=== PATIENT | female | born 1985 | race Caucasian/White ===

== ENCOUNTER → 2016-05-16 | Outpatient (CLI) | payer BC ==
[~2016-05-16] MED LIST: ALPR0.25 PO; MULT-506 PO
== END | disposition home or self-care (01) ==
LOC: C.PAPS 11:52
PROVIDERS: ATTEND Obstetrics & Gynecology
DX: Z01.419 Encounter for gynecological examination (general) (routine) without abnormal findings (principal)

== ENCOUNTER → 2016-06-28 | Outpatient (CLI) | payer BC ==
[2016-06-28 10:17] LABS: THYROID STIMULATING HORMONE 0.823 uIu/ml (0.300-4.500)
== END | disposition home or self-care (01) ==
LOC: C.LAB1850 08:42
PROVIDERS: ATTEND Obstetrics & Gynecology
DX: R53.83 Other fatigue (principal); N91.1 Secondary amenorrhea

== ENCOUNTER → 2016-08-05 | Outpatient (CLI) | payer BC | END | disposition home or self-care (01) | LOC: C.LAB1850 11:43 | PROVIDERS: ATTEND Obstetrics & Gynecology | DX: N92.6 Irregular menstruation, unspecified (principal) ==

== ENCOUNTER → 2016-08-13 | Outpatient (CLI) | payer BC ==
--- NOTE | 2016-08-13 08:51 | DIAGNOSTIC IMAGING REPORT ---
LEFT RIBS UNILATERAL WITH PA CHEST CLINICAL HISTORY: Left chest wall pain. COMPARISON STUDY: No previous studies for comparison. FINDINGS: The erect chest reveals no pneumothorax. There is no focal pulmonary consolidation. There are no pleural effusions. No left-sided rib fractures are visualized. IMPRESSION: No evidence of pneumothorax. No left-sided rib fractures are visualized. Electronically signed by: Negrito Miles M.D. 08/13/2016 8:50 AM Dictated Date/Time: 08/13/2016 8:49 AM
== END | disposition home or self-care (01) ==
LOC: C.RAD1850 08:24
PROVIDERS: ATTEND Nurse Practitioner Family
DX: R07.89 Other chest pain (principal)

== ENCOUNTER → 2016-08-29 | Outpatient (CLI) | payer BC ==
--- NOTE | 2016-08-29 12:59 | DIAGNOSTIC IMAGING REPORT ---
HYSTEROSALPINGOGRAM CLINICAL HISTORY: Infertility testing. COMPARISON STUDY: Pelvic ultrasound dated 01/01/2016. FINDINGS: Fluoroscopic assistance was provided to the padder cushion in performing a hysterosalpingogram. The uterine cavity distends normally. Small gas bubbles are present within the endometrial canal. No filling defects are identified. There is normal filling of the fallopian tubes, with free spillage of contrast into pelvis bilaterally. Fluoroscopy time: 0.3 minutes. IMPRESSION: Unremarkable hysterosalpingogram. The fallopian tubes are widely patent bilaterally. Electronically signed by: Yobany Sal M.D. 08/29/2016 12:57 PM Dictated Date/Time: 08/29/2016 12:57 PM
--- NOTE | 2016-08-29 13:41 | OPERATIVE REPORT ---
DATE OF OPERATION: 08/29/2016 PREOPERATIVE DIAGNOSES: Primary infertility. POSTOPERATIVE DIAGNOSIS: Same. PROCEDURE PERFORMED: Hysterosalpingogram. SURGEON: Dr. Ordaz. FINDINGS: Injection of radiopaque dye showed normal fill and spill bilaterally of the fallopian tubes. PROCEDURE IN DETAIL: In the fluoroscopy suite, the patient was placed in dorsal lithotomy position. Cervix was visualized, cleansed with Betadine, HSG cannula inserted into the cervical os. Under direct fluoroscopic guidance hCG was performed with injection of radiopaque dye. Description as above. Instrumentation removed from the cervix. The patient tolerated the procedure well. I attest to the content of the Intraoperative Record and any orders documented therein. Any exceptio ns are noted below.
== END | disposition home or self-care (01) ==
LOC: C.RAD 11:13
PROVIDERS: ATTEND Obstetrics & Gynecology
DX: Z31.41 Encounter for fertility testing (principal)

== ENCOUNTER → 2016-09-21 | Outpatient (CLI) | payer BC ==
[2016-09-21 12:10] LABS: THYROID STIMULATING HORMONE 1.23 uIu/ml (0.300-4.500)
[2016-09-21 12:12] LABS: CALCULATED INSULIN SENSITIVITY 0.335; GLUCOSE LOG 1.9542; INSULIN FASTING 10.8 mU/L (3-25); PROLACTIN 7.56 ng/mL
== END | disposition home or self-care (01) ==
LOC: C.LAB 10:59
PROVIDERS: ATTEND Obstetrics & Gynecology
DX: Z31.41 Encounter for fertility testing (principal); L68.0 Hirsutism

== ENCOUNTER → 2017-01-07 | Outpatient (CLI) | payer BC | END | disposition home or self-care (01) | LOC: C.LABSPEC 17:55 | PROVIDERS: ATTEND Family Medicine | DX: J02.9 Acute pharyngitis, unspecified (principal) ==

== ENCOUNTER → 2017-03-03 | Outpatient (CLI) | payer BC ==
[2017-03-03 12:36] LABS: URINE APPEARANCE TURBID (CLEAR); URINE BILIRUBIN NEG (NEG); URINE COLOR YELLOW; URINE EPITHELIAL CELL AUTO >30 /lpf (0-5); URINE NITRITE NEG (NEG); URINE PH 5.5 (4.5-7.5); URINE SPECIFIC GRAVITY 1.025 (1.000-1.030); UROBILINOGEN NEG (NEG)
[2017-03-03 12:50] LABS: MANUAL MICROSCOPIC REQUIRED? NO; REVIEW REQ? NO
== END | disposition home or self-care (01) ==
LOC: C.LABPBG 09:55
PROVIDERS: ATTEND Obstetrics & Gynecology
DX: R39.9 Unspecified symptoms and signs involving the genitourinary system (principal)

== ENCOUNTER → 2017-06-13 | Outpatient (CLI) | payer BC ==
[2017-06-13 16:44] LABS: BASO % 0.6 %; BASO ABS # 0.03 K/uL (0-0.2); EOS % 3.2 %; EOS ABS # 0.17 K/uL (0-0.5); HEMATOCRIT 37.1 % (37-47); HEMOGLOBIN 12.5 g/dL (12.0-16.0); IG# 0.01 K/uL (0.00-0.02); LYMPH % 38.3 %; LYMPH ABS # 2.04 K/uL (1.2-3.4); MEAN CELL VOLUME 88.3 fL (80-100); MEAN CORPUSCULAR HEMOGLOBIN 29.8 pg (25-34); MEAN CORPUSCULAR HGB CONC 33.7 g/dl (32-36); MEAN PLATELET VOLUME 9.4 fL (7.4-10.4); MONO % 6.4 %; MONO ABS # 0.34 K/uL (0.11-0.59); NEUT % 51.3 %; NEUT ABS # 2.74 K/uL (1.4-6.5); PLATELET COUNT 232 K/uL (130-400); RED CELL DISTRIBUTION WIDTH CV 13.6 % (11.5-14.5); RED CELL DISTRIBUTION WIDTH SD 43.8 fL (36.4-46.3); WHITE BLOOD COUNT 5.33 K/uL (4.8-10.8)
[2017-06-13 16:56] LABS: ALBUMIN 3.8 gm/dl (3.4-5.0); ALT/SGPT 17 U/L (12-78); BLOOD UREA NITROGEN 14 mg/dl (7-18); CALCIUM 8.8 mg/dl (8.5-10.1); CARBON DIOXIDE 27 mmol/L (21-32); CREATININE 0.82 mg/dl (0.60-1.20); GLUCOSE 84 mg/dl (70-99); POTASSIUM 3.4 mmol/L (3.5-5.1); SODIUM 139 mmol/L (136-145)
[2017-06-13 17:07] LABS: ALKALINE PHOSPHATASE 53 U/L (45-117); AST/SGOT 11 U/L (15-37); TOTAL PROTEIN 7.1 gm/dl (6.4-8.2)
== END | disposition home or self-care (01) ==
LOC: C.LABBC 12:48
PROVIDERS: ATTEND Family Medicine
DX: R61 Generalized hyperhidrosis (principal)

== ENCOUNTER → 2017-08-20 | Outpatient (CLI) | payer BC ==
--- NOTE | 2017-08-20 13:52 | DIAGNOSTIC IMAGING REPORT ---
PELVIC COMPLETE NON OB HISTORY: 31 years-old Female R19.7,R10.30 acute lower pelvic pain COMPARISON: 01/01/2016 TECHNIQUE: Multiple real-time sonographic images of the pelvis were obtained transabdominally and transvaginally assessing grayscale appearance, color and spectral flow FINDINGS: TRANSABDOMINAL: Anteflexed uterus. Pelvic structures are not well seen. TRANSVAGINAL: Anteflexed uterus measures 8.1 x 4.3 x 4.4 cm and is unremarkable without myometrial mass lesion identified. Endometrium appears homogeneous, 0.7 cm. The right ovary measures 3.9 x 2.3 x 3.5 cm and demonstrates normal-appearing follicles with arterial inflow to the right ovary documented. The left ovary measures 3.7 x 2.3 x 2.7 cm and is also unremarkable with arterial inflow documented. No adnexal mass lesions. No significant free pelvic fluid. IMPRESSION: 1. Unremarkable sonographic appearance of the bilateral ovaries without evidence of adnexal mass lesion or ovarian torsion. 2. Normal appearance of the uterus and endometrium. The above report was generated using voice recognition software. It may contain grammatical, syntax or spelling errors. Electronically signed by: Haris Flor M.D. 08/20/2017 1:50 PM Dictated Date/Time: 08/20/2017 1:48 PM
--- NOTE | 2017-08-20 14:01 | DIAGNOSTIC IMAGING REPORT ---
ABDOMEN COMPLETE (US) HISTORY: Pain R19.7,R10.30. COMPARISON: None. FINDINGS: Pancreas: The pancreas demonstrates a normal echotexture. Liver: Unremarkable. Gallbladder: No gallbladder wall thickening. No gallstones. CBD: 3 mm Kidneys: No hydronephrosis. Spleen: Normal in size. Aorta: Normal in caliber. IVC: Patent. IMPRESSION: No significant abnormality identified within the within the abdomen. The above report was generated using voice recognition software. It may contain grammatical, syntax or spelling errors. Electronically signed by: Keith Rubio M.D. 08/20/2017 2:00 PM Dictated Date/Time: 08/20/2017 1:50 PM
[2017-08-20 17:05] LABS: BASO % 0.5 %; BASO ABS # 0.03 K/uL (0-0.2); EOS % 2.7 %; EOS ABS # 0.16 K/uL (0-0.5); HEMATOCRIT 41.2 % (37-47); HEMOGLOBIN 14.4 g/dL (12.0-16.0); IG# 0.01 K/uL (0.00-0.02); LYMPH % 35.5 %; LYMPH ABS # 2.09 K/uL (1.2-3.4); MEAN CELL VOLUME 87.5 fL (80-100); MEAN CORPUSCULAR HEMOGLOBIN 30.6 pg (25-34); MEAN PLATELET VOLUME 10.3 fL (7.4-10.4); MONO % 8.8 %; MONO ABS # 0.52 K/uL (0.11-0.59); NEUT % 52.3 %; NEUT ABS # 3.07 K/uL (1.4-6.5); PLATELET COUNT 223 K/uL (130-400); RED CELL DISTRIBUTION WIDTH CV 12.7 % (11.5-14.5); RED CELL DISTRIBUTION WIDTH SD 41.2 fL (36.4-46.3); WHITE BLOOD COUNT 5.88 K/uL (4.8-10.8)
[2017-08-20 17:14] LABS: ALBUMIN 4.4 gm/dl (3.4-5.0); ALT/SGPT 20 U/L (12-78); AST/SGOT 15 U/L (15-37); BLOOD UREA NITROGEN 10 mg/dl (7-18); CALCIUM 9.3 mg/dl (8.5-10.1); CARBON DIOXIDE 28 mmol/L (21-32); CREATININE 0.82 mg/dl (0.60-1.20); GLUCOSE 87 mg/dl (70-99); POTASSIUM 3.8 mmol/L (3.5-5.1); SODIUM 137 mmol/L (136-145)
[2017-08-20 17:17] LABS: ALKALINE PHOSPHATASE 67 U/L (45-117)
== END | disposition home or self-care (01) ==
LOC: C.ULTRBC 12:37
PROVIDERS: ATTEND Physician Assistant Medical
DX: R19.7 Diarrhea, unspecified (principal); R10.30 Lower abdominal pain, unspecified; Z13.21 Encounter for screening for nutritional disorder

== ENCOUNTER → 2017-08-21 | Outpatient (CLI) | payer BC | END | disposition home or self-care (01) | LOC: C.LABSPEC 08:53 | PROVIDERS: ATTEND Physician Assistant Medical | DX: R10.30 Lower abdominal pain, unspecified (principal); R19.7 Diarrhea, unspecified ==

== ENCOUNTER → 2017-11-05 | Outpatient (CLI) | payer BC ==
[~2017-11-05] MED LIST changes: +CHOL20007 PO; +ESCI10TA17 PO; -MULT-506 PO; +PRENTAB26 PO
== END | disposition home or self-care (01) ==
LOC: C.PAPS 15:03
PROVIDERS: ATTEND Obstetrics & Gynecology
DX: Z01.419 Encounter for gynecological examination (general) (routine) without abnormal findings (principal)

== ENCOUNTER → 2017-12-05 | Day surgery (SDC) | payer BC ==
[2017-09-15 12:03] VITALS: BMI 25.0
[2017-11-26 11:54] VITALS: BMI 25.0
[2017-12-02 11:24] VITALS: BMI 25.0
--- NOTE | 2017-12-02 11:51 | PAT Medication Instructions ---
Service Date Dec 02, 2017. Current Home Medication List Alprazolam (Xanax), 0.25 MG PO TID PRN for Anxiety Cholecalciferol (Vitamin D3), 1 TAB PO QAM Escitalopram (Lexapro), 10 MG PO QAM Multivit/Min/Iron/Fol Ac/Pren ( Vitamin), 1 TAB PO QAM Medication Instructions For Your Scheduled Surgery - Hold the following medications the morning of surgery: Cholecalciferol (Vitamin D3), 1 TAB PO QAM Multivit/Min/Iron/Fol Ac/Pren ( Vitamin), 1 TAB PO QAM - Take the following medications the morning of surgery with a sip of water: Alprazolam (Xanax), 0.25 MG PO TID PRN for Anxiety (if needed) Escitalopram (Lexapro), 10 MG PO QAM - Take the following medications as scheduled the night before surgery: Alprazolam (Xanax), 0.25 MG PO TID PRN for Anxiety (if needed) If you have any questions please call us at [phone] or [phone] or [phone]
[2017-12-02 12:40] LABS: BASO % 0.4 %; BASO ABS # 0.02 K/uL (0-0.2); EOS % 2.2 %; HEMATOCRIT 39.5 % (37-47); HEMOGLOBIN 13.2 g/dL (12.0-16.0); IG# 0.01 K/uL (0.00-0.02); LYMPH % 31.2 %; LYMPH ABS # 1.41 K/uL (1.2-3.4); MEAN CELL VOLUME 87.2 fL (80-100); MEAN CORPUSCULAR HEMOGLOBIN 29.1 pg (25-34); MEAN CORPUSCULAR HGB CONC 33.4 g/dl (32-36); MEAN PLATELET VOLUME 9.5 fL (7.4-10.4); MONO % 11.7 %; MONO ABS # 0.53 K/uL (0.11-0.59); NEUT % 54.3 %; NEUT ABS # 2.45 K/uL (1.4-6.5); PLATELET COUNT 205 K/uL (130-400); RED CELL DISTRIBUTION WIDTH CV 13.2 % (11.5-14.5); RED CELL DISTRIBUTION WIDTH SD 42.3 fL (36.4-46.3); WHITE BLOOD COUNT 4.52 K/uL (4.8-10.8)
[2017-12-02 12:46] LABS: CALCIUM 9.2 mg/dl (8.5-10.1); CREATININE 0.75 mg/dl (0.60-1.20); POTASSIUM 4.2 mmol/L (3.5-5.1)
[~2017-12-05] VITALS: Ht 160 cm; Wt 66.5 kg
[~2017-12-05] MED LIST changes: +ATROPINE SULFATE 0.1 MG/ML 5ML SYR IV PRN; +BUPIVACAINE 0.5 % 5 MG/1 ML PF 10ML VIAL ONE; +DEXAMETHASONE SOD INJ 4 MG/ML VIAL ONE; +FENTANYL CITRATE INJ 50 MCG/1 ML 2 ML VIAL IV PRN; +FENTANYL CITRATE INJ 50 MCG/1 ML 2 ML VIAL ONE; +GLYCOPYRROLATE INJ 0.2 MG/ML VIAL ONE; +IBUPROFEN 600 MG TAB PO PRN; +KETOROLAC TROMETHAMINE 30 MG/ML VIAL IV. PRN; +KETOROLAC TROMETHAMINE 30 MG/ML VIAL ONE; +LACTATED RINGER'S 1000ML 1,000 ML IV SCH; +LIDOCAINE HCL 2% 2 ML VIAL (20MG/ML) ONE; +MIDAZOLAM HCL 1 MG/ML 2ML VIAL ONE; +MTR600X PO; +NEOSTIGMINE METHYLSULFATE 5 MG/5 ML SYR ONE; +ONDANSETRON INJ 2 MG/ML 2 ML VIAL IV PRN; +ONDANSETRON INJ 2 MG/ML 2 ML VIAL ONE; +OXYC-57 PO; +OXYCODONE/ACETAMINOPHEN 5-325 TAB PO PRN; +PROMETHAZINE HCL INJ 25 MG in SODIUM CHLORIDE 0.9% 50ML 50 ML IV PRN; +PROPOFOL IV EMULSION 10 MG/ML 20 ML VIAL ONE; +SODIUM CHLORIDE 0.9% 1000ML 1,000 ML IV SCH
[2017-12-05 06:15] VITALS: BP 129/73; PULSE 80; TEMP 36.7; O2SAT 100; Ht 160 cm; Wt 66.5 kg
--- NOTE | 2017-12-05 07:06 | History & Physical Bridge Note ---
H&P Re-Evaluation Bridge Note: I have examined the patient, reviewed the History & Physical and in the interval since the performance of the History & Physical I have noted the following changes of clinical significance: No changes noted
--- NOTE | 2017-12-05 08:14 | [facility] Post Operative Brief Note ---
Immediate Operative Summary Operative Date Dec 05, 2017. Pre-Operative Diagnosis Dysmenorrhea Post-Operative Diagnosis Dysmenorrhea Pelvic pain, normal pelvis Procedure(s) Performed Diagnostic laparoscopy Surgeon Dr. Harleen Tanner MD Heel Seam Rubber Surgeon(s) None Estimated Blood Loss 1ml Findings Consistent with Post-Op Diagnosis Specimens None per surgeon Drains None Anesthesia Type General Complication(s) none Disposition Accompanied Pt To Recover: no Disposition: Recovery Room / PACU
--- NOTE | 2017-12-05 08:15 | Discharge Instructions ---
Discharge Instructions Date of Service Dec 05, 2017. Admission Reason for Admission: Dysmenorrhea ,Menorrhagia Discharge Discharge Diagnosis / Problem: pelvic pain Discharge Goals Goal(s): Routine recovery after surgery Activity Recommendations Activity Limitations: per Instructions/Follow-up section . Instructions / Follow-Up Instructions / Follow-Up ACTIVITY RECOMMENDATIONS: * Rest the first 2-3 days. You should be back to your normal activity levels by day 3. * No heavy lifting for 2 weeks. * No intercourse, tampons or douching for 1-2 weeks. * You may shower the next day. * Do not drive anytime that you are taking narcotic pain medicines. RETURN TO SCHOOL/WORK: * May return to school or work after 2-3 days. DIET: Nausea may occur in the immediate post-operative period. If so, take clear liquids such as tea, bouillon, apple juice until all nausea has subsided, then resume usual diet. MEDICATIONS: Resume previous medications unless instructed otherwise by your surgeon. Ibuprofen 200mg 2-3 tablets every 4-6 hours as needed -- OR -- Aleve 2 tablets every 8-12 hours as needed for post-operative discomfort Medications are over the counter. Tylenol may be used if above medications are contraindicated or not preferred. Medication should be taken with food or milk. Do not take on an empty stomach. SPECIAL CARE INSTRUCTIONS: * Check temperature twice daily for one week. report any elevation over 101 degrees. * You may experience some vagina spotting and/or bleeding. This is normal for 1 -2 weeks and should not be heavier than a normal period. If it is unusual in amount, call your physician. * Post-operative discomfort may consist of a sore throat, a "bloated" feeling and pain in the shoulders. these are normal symptoms, which usually only last for 2-3 days. * Remove band-aids tomorrow and shower. There is no need to replace band-aids unless there is drainage or discomfort. FOLLOW UP VISIT: Call your doctor's office for a post-operative 2 week visit if not already scheduled. Current Hospital Diet Patient's current hospital diet: Discharge Diet Recommended Diet: Regular Diet Procedures Procedures Performed: Diagnostic laparoscopy Pending Studies Studies pending at discharge: no Medical Emergencies . Who to Call and When: Medical Emergencies: If at any time you feel your situation is an emergency, please call 911 immediately. . Non-Emergent Contact Non-Emergency issues call your: [employer] Developer . . "Provider Documentation" section prepared by Keanu Tanner. .
--- NOTE | 2017-12-05 08:47 | OPERATIVE REPORT ---
DATE OF OPERATION: 12/05/2017 PREOPERATIVE DIAGNOSIS: Dysmenorrhea. POSTOPERATIVE DIAGNOSES: Dysmenorrhea, pelvic pain and normal pelvis. PROCEDURE: Diagnostic laparoscopy. SURGEON: Keanu Tanner MD UNBUNDLER: None. ESTIMATED BLOOD LOSS: 1 mL. FINDINGS: Consistent with postoperative diagnosis. SPECIMENS: None. DRAINS: None. ANESTHETIC: General. COMPLICATIONS: None. DISPOSITION: Recovery room. DESCRIPTION OF PROCEDURE: The patient was given a general anesthetic, prepped and draped in dorsal lithotomy position. Awad catheter inserted in her bladder and cervical acorn attached to her cervix with an Allis clamp. Gloves changed and a subumbilical vertical incision was made with scalpel. Using Amelia technique, we did a cut down through the subcutaneous fat through the fascia, splitting the rectus muscles and entering the peritoneal cavity. Blunt-tipped Amelia trocar then placed. Balloon inflated to stabilize the port. CO2 gas used to inflate the abdomen. FINDINGS: Upper abdomen normal, no sign of visceral organ injury. Deep Trendelenburg position obtained and a left lower quadrant port was placed under direct visualization. We were able to visualize the pelvis. It was completely normal. FINDINGS: Anterior bladder flap, normal. Left ovary, normal. Right ovary had a small resolving corpus luteal cyst. Cul-de-sac normal. Uterosacrals normal. Left pelvic sidewall, normal. Right pelvic sidewall, normal. Round ligaments, normal. Fallopian tubes, normal. The patient had a prior appendectomy, sutures could be seen. There was no endometriosis in this location. After very thorough investigation, the patient had no endometriosis and no adhesions. At this stage, we stopped the procedure. Ports removed under direct visualization. Gas allowed to escape. Incisions injected with 0.5% Marcaine. Fascia closed with an 0 Vicryl UR-6 needle in the umbilicus and all incisions injected with 0.5% Marcaine as mentioned and then 4-0 subcuticular Monocryl closures. Dermabond applied. Awad catheter removed. Urine was clear at the end of the procedure. Instruments removed from the cervix and vagina. Sponge and instrument counts correct. I attest to the content of the Intraoperative Record and any orders documented therein. Any exception s are noted below.
[2017-12-05 09:10] VITALS: BP 119/55; PULSE 78; TEMP 36.8; O2SAT 100
[2017-12-05 09:43] VITALS: BP 117/64; PULSE 72; O2SAT 100
[2017-12-05 10:10] VITALS: BP 138/73; PULSE 78; TEMP 37.2; O2SAT 98
--- NOTE | 2017-12-05 10:26 | Anesthesiology Progress Note ---
Anesthesia Post Op Note Date & Time Dec 05, 2017 at 10:25 Vital Signs Pain Intensity: 1 Vital Signs Past 12 Hours Date Time Temp Pulse Resp B/P (MAP) Pulse Ox O2 Delivery O2 Flow Rate FiO2 12/05/17 10:10 37.2 78 16 138/73 98 Room Air 12/05/17 09:43 72 16 117/64 100 Room Air 12/05/17 09:10 36.8 78 16 119/55 100 Room Air 12/05/17 09:00 36.5 75 13 127/65 98 Nasal Cannula 12/05/17 08:50 75 13 125/64 97 Nasal Cannula 12/05/17 08:40 82 10 136/73 100 Oxymask 10 12/05/17 08:30 81 14 137/73 100 Oxymask 10 12/05/17 08:24 36.4 101 26 141/77 100 Oxymask 10 12/05/17 06:15 36.7 80 16 129/73 (91) 100 Room Air Notes Mental Status: alert / awake / arousable, participated in evaluation Pt Amnestic to Procedure: Yes Nausea / Vomiting: adequately controlled Pain: adequately controlled Airway Patency, RR, SpO2: stable & adequate BP & HR: stable & adequate Hydration State: stable & adequate Anesthetic Complications: no major complications apparent
== END | disposition home or self-care (01) ==
LOC: C.ACU 05:52
PROVIDERS: ATTEND Obstetrics & Gynecology
DX: N94.6 Dysmenorrhea, unspecified (principal); N92.0 Excessive and frequent menstruation with regular cycle; Z88.5 Allergy status to narcotic agent; Z90.49 Acquired absence of other specified parts of digestive tract; Z87.440 Personal history of urinary (tract) infections; Z87.891 Personal history of nicotine dependence; Z91.040 Latex allergy status

== ENCOUNTER 2019-08-18 00:43 | Inpatient (IN) ==
[2019-08-18] MEDS ORDERED: OXYTOCIN 30 UNITS/500 ML BAG IV PRN ×3 (01:31→23:59)
[2019-08-18] MEDS ORDERED: fentaNYL 2MCG/ML ROPIV 1.25MG/ML 100 ML BAG EPI ONE ×2 (01:35→01:37)
[2019-08-18] MEDS ORDERED: ePHEDrine sulfate 50 MG/ML AMP ONE (01:36)
[2019-08-18] MEDS ORDERED: BUPIVACAINE 0.25% 30 ML VIAL ONE ×2 (01:36→16:27)
[2019-08-18] MEDS ORDERED: fentaNYL citrate 100 MCG/2 ML VIAL ONE ×2 (01:37→16:27)
[2019-08-18] MEDS: LACTATED RINGER'S 1,000 ML IV PRN ×4 (01:42→18:11)
[2019-08-18 02:00] LABS: Hematocrit (blood only) 31.1 % (37-47); Hemoglobin 10.1 g/dL (12.0-16.0); Mean Corpuscular Hemoglobin 28.4 pg (25-34); Mean Corpuscular Volume 87.4 fL (80-100); Platelet Count 204 K/uL (130-400); RDW Coefficient of Variation 13.5 % (11.5-14.5); RDW Standard Deviation 43.4 fL (36.4-46.3); Red Blood Count 3.56 M/uL (4.2-5.4); White Blood Count 9.72 K/uL (4.8-10.8)
[2019-08-18 02:06] LABS: Mean Corpuscular Hgb Conc 32.5 g/dL (32-36)
[2019-08-18 02:19] LABS: Alanine Aminotransferase 21 U/L (12-78); Albumin Level 2.7 gm/dl (3.4-5.0); Aspartate Aminotransferase 15 U/L (15-37); BUN Creatinine Ratio 17.2 (10-20); Bilirubin Direct < 0.1 mg/dl (0-0.2); Blood Urea Nitrogen 9 mg/dl (7-18); Calcium 8.6 mg/dl (8.5-10.1); Carbon Dioxide 21 mmol/L (21-32); Chloride 109 mmol/L (98-107); Creatinine Clr Calc Pharmacy 145.3 ml/min; Est GFR (African American) 144.9; Glucose 88 mg/dl (70-99); Potassium 3.7 mmol/L (3.5-5.1); Sodium 138 mmol/L (136-145)
[2019-08-18 02:22] LABS: Albumin Globulin Ratio 0.7 (0.9-2); Alkaline Phosphatase 124 U/L (45-117); Bilirubin,Total 0.2 mg/dl (0.2-1); Globulin 3.8 gm/dl (2.5-4.0); Total Protein 6.5 gm/dl (6.4-8.2)
[2019-08-18] MEDS ORDERED: ONDANSETRON INJ 2 MG/ML 2 ML VIAL IV PRN (02:40)
[2019-08-18] MEDS ORDERED: ePHEDrine sulfate 50 MG/ML AMP IV PRN (02:40)
[2019-08-18] MEDS ORDERED: DiphenhydrAMINE HCL 50 MG/ML VIAL IV PRN (02:40)
[2019-08-18] MEDS ORDERED: NALBUPHINE HCL INJ 10 MG/ML AMP IV PRN (02:40)
[2019-08-18] MEDS ORDERED: NALOXONE HCL 1 MG in SODIUM CHLORIDE 0.9% 1000ML 1,000 ML IV PRN (02:40)
[2019-08-18] MEDS ORDERED: NALOXONE HCL 0.4 MG/1 ML VIAL/CARP IV PRN (02:40)
--- NOTE | 2019-08-18 02:44 | Anesthesiology Consultation ---
Date of Service August 18, 2019 Assessment & Plan Chart Review Chart Review: Patient NOT seen in Pre Admission Testing and Acceptable Risk for Labor Epidural Consults Requested none ASA ASA2 Proposed Anesthesia Anesthesia Type: Labor Epidural and CSE Risk / Benefits Reviewed With: PT / POA / Parent / Guardian, Accepts Plan and Informed Consent Obtained History Height/Weight Height: 5 ft 3 in Weight: 76.657 kg Allergies Allergy/AdvReac Type Severity Reaction Status Date / Time adhesive tape Allergy Mild Rash Verified 08/17/19 19:31 latex Allergy Mild Rash Verified 08/17/19 19:31 acetaminophen [From Vicodin] Allergy GI upset Verified 08/17/19 19:31 hydrocodone [From Vicodin] Allergy GI upset Verified 08/17/19 19:31 nitrofurantoin AdvReac Unknown Gastrointestinal Verified 08/17/19 19:31 Upset Medications Home Medications Medication Instructions Recorded Confirmed Last Taken escitalopram oxalate [Lexapro] 10 mg PO DAILY 08/13/19 08/18/19 08/17/19 10:00 vit-iron fum-folic ac 1 tab PO DAILY 08/13/19 08/18/19 08/17/19 08:00 [ Vitamin] Active Medications Generic Name Dose Route Start Last Admin Trade Name Freq PRN Reason Stop Dose Admin Lactated Ringer's 1,000 mls @ 125 mls/hr 08/18/19 01:31 08/18/19 02:46 Lr IV 08/20/19 01:30 125 mls/hr .Q8H PRN Administration L&D Protocol Protocol NPO Date Last Intake of Fluids: 08/18/19 Time Last Intake of Fluids: 01:30 Date Last Intake of Solids: 08/17/19 Time Last Intake of Solids: 17:00 Past Medical History Medical History Acne (Chronic) Allergic rhinitis (Chronic) Anxiety (Chronic) Chronic constipation Chronic sinusitis (Chronic) Encounter for anatomic survey Fatigue (Resolved) Female dyspareunia (Inactive) Female infertility (Resolved) Fertility testing Hirsutism (Resolved) History of breast implant removal Menorrhagia (Resolved) Migraine headache (Chronic) Moderate cervical dysplasia (Resolved) Ovarian cyst (Resolved) Palpitations Premenstrual syndrome (Resolved) Renal lesion (Chronic) Secondary amenorrhea (Inactive) Sinus tachycardia (Resolved) TMJ syndrome (Resolved) Vitamin D deficiency (Resolved) Exercise / Class Metabolic Activity II 4-5 Yardwork/Stairs/Walk up hill Past Family History Family History Mother Adult celiac disease Endometriosis Non-Hodgkin lymphoma Anemia Sister Endometriosis Grandmother (Paternal) Diabetes Aunt Diabetes *Paternal Grandmother (Maternal) Anemia Hypertension Hypercholesteremia Denies family history of Ovarian cancer Prostate cancer Myocardial infarction Breast cancer Colorectal cancer Past Surgical History Surgical History History of appendectomy (10/12/12) History of appendectomy History of breast augmentation April 2010 History of laparoscopy History of oral surgery Past Anesthesia History No Hx of Anesthesia Complications and No Family Hx of Anesthesia Complications History of PONV No Hx of PONV and History of PONV Social History Smoking Status: Never smoker tobacco type: cigarettes Hx Alcohol Use: No Hx Substance Use: No substance use type: does not use Review of Systems no chest pain or sob Physical Exam Vital Signs Last Vital Signs Temp 36.7 C 08/18/19 00:59 Pulse 85 08/18/19 02:44 Resp 18 08/18/19 00:59 BP 145/71 H 08/18/19 02:40 Pulse Ox 98 08/18/19 02:44 ENMT Mouth: no TMJ abnormality Thyromental Distance: > or= 3.5 Finger Breadths Mallampati Class: II Neck normal visual inspection Respiratory normal respiratory effort Auscultation: lungs clear to auscultation bilaterally Cardiovascular Rate/Rhythm: regular rate and regular rhythm Musculoskeletal Spine: normal cervical ROM Neurologic moves all extremities Psychiatric Orientation: alert and oriented x 3 Testing Laboratory Results 08/18/19 01:45 08/18/19 01:45
--- NOTE | 2019-08-18 07:39 | History & Physical Report ---
Date of Service August 18, 2019 P1 with gestational hypertension being induced at 37+0. Had cervical lewis last night then started to contract and presented in labor. Epidural requested and received. GBS negative Assessment & Plan (1) Gestational hypertension: induction pitocin. History of Present Illness Primary Care Provider: Sandhya Hunter DO Allergies Allergy/AdvReac Type Severity Reaction Status Date / Time adhesive tape Allergy Mild Rash Verified 08/17/19 19:31 latex Allergy Mild Rash Verified 08/17/19 19:31 acetaminophen [From Vicodin] Allergy GI upset Verified 08/17/19 19:31 hydrocodone [From Vicodin] Allergy GI upset Verified 08/17/19 19:31 nitrofurantoin AdvReac Unknown Gastrointestinal Verified 08/17/19 19:31 Upset Home Medications Home Medications Medication Instructions Recorded Confirmed Type escitalopram oxalate [Lexapro] 10 mg PO DAILY 08/13/19 08/18/19 History vit-iron fum-folic ac 1 tab PO DAILY 08/13/19 08/18/19 History [ Vitamin] Patient History Medical History Acne (Chronic) Allergic rhinitis (Chronic) Anxiety (Chronic) Chronic constipation Chronic sinusitis (Chronic) Encounter for anatomic survey Fatigue (Resolved) Female dyspareunia (Inactive) Female infertility (Resolved) Fertility testing Hirsutism (Resolved) History of breast implant removal Menorrhagia (Resolved) Migraine headache (Chronic) Moderate cervical dysplasia (Resolved) Ovarian cyst (Resolved) Palpitations Premenstrual syndrome (Resolved) Renal lesion (Chronic) Secondary amenorrhea (Inactive) Sinus tachycardia (Resolved) TMJ syndrome (Resolved) Vitamin D deficiency (Resolved) Surgical History History of appendectomy (10/12/12) History of appendectomy History of breast augmentation April 2010 History of laparoscopy History of oral surgery Family History Mother Adult celiac disease Endometriosis Non-Hodgkin lymphoma Anemia Sister Endometriosis Grandmother (Paternal) Diabetes Aunt Diabetes *Paternal Grandmother (Maternal) Anemia Hypertension Hypercholesteremia Denies family history of Ovarian cancer Prostate cancer Myocardial infarction Breast cancer Colorectal cancer Social History Preferred Language: Cameroonian Communication Ability: Effective Visual Impairment: No Limitations Hearing Ability: Normal Rock Mason Required: No Beliefs That Will Affect Care: None marital status: marital status details: Jerry Florez (33) [phone] Current Living Situation: Spouse Current Living Situation Comment: 2 dogs current occupational status: employed current occupation: [employer] @ [employer] Feels Safe at Home: Yes Safety Concerns: Feels Safe At This Time Smoking Status: Never smoker Tobacco Type: cigarettes ; Second Hand Exposure: No ; Hx Alcohol Use: No Hx Substance Use: No Dental Care, Regularly: Yes Physical Activity Frequency: 3-4 Times per Week Seatbelt Use: always Physical Exam Constitutional: WD/WN, vitals as above Respiratory: normal respiratory effort, lungs clear to auscultation Genitourinary: Manual OB Exam: + cervical dilation 4 cm, + cervical effacement 50% and + station high OB Exam Monitor Tracing: + external FHT monitor used Results & Data Vital Signs (Past 12 Hours) Vital Signs Temp Pulse Resp BP Pulse Ox 08/18/19 07:36 77 125/56 L 08/18/19 07:34 88 98 08/18/19 07:29 78 99 08/18/19 07:24 81 96 08/18/19 07:21 75 125/59 L 08/18/19 07:19 74 98 08/18/19 07:14 74 99 08/18/19 07:09 82 100 08/18/19 07:05 93 H 131/62 08/18/19 07:04 83 99 08/18/19 06:59 95 H 98 08/18/19 06:54 81 97 08/18/19 06:51 81 130/59 L 08/18/19 06:49 91 H 96 08/18/19 06:44 82 96 08/18/19 06:39 91 H 99 08/18/19 06:36 85 133/63 08/18/19 06:35 79 137/64 08/18/19 06:34 80 99 08/18/19 06:29 92 H 96 08/18/19 06:24 80 97 08/18/19 06:21 86 124/60 08/18/19 06:19 84 96 08/18/19 06:14 82 97 08/18/19 06:09 85 99 05/06/20 06:05 83 134/65 05/06/20 06:04 88 98 05/06/20 05:59 82 99 05/06/20 05:55 16 05/0620 05:54 80 99 05/06/20 05:49 78 100 05/06/20 05:44 83 99 05/06/20 05:39 89 99 05/06/20 05:34 81 99 05/06/20 05:30 98.6 F 16 050620 05:29 78 99 05/06/20 05:25 18 05/06/20 05:24 88 99 05/06/20 05:19 88 96 05/06/20 05:14 85 96 05/06/20 05:09 81 96 050620 05:04 89 96 0506/20 04:59 84 95 05/06/20 04:55 81 94 05/06/20 04:54 80 95 05/06/20 04:49 79 95 0506/20 04:48 86 94 050620 04:44 86 96 05/06/20 04:39 81 97 05/06/20 04:35 18 050620 04:34 88 98 05/06/20 04:30 79 130/72 05/06/20 04:29 87 96 05/06/20 04:24 70 95 05/06/20 04:21 86 107/58 L 0620 04:19 86 95 05/06/20 04:15 82 94 05/06/20 04:14 85 96 050620 04:09 68 96 05/0620 04:06 83 108/58 L 91 050620 04:05 16 050620 04:04 92 H 98 05/06/20 03:59 73 96 05/06/20 03:54 81 98 05/06/20 03:52 76 121/68 93 05/06/20 03:49 76 97 05/06/20 03:44 79 97 05/06/20 03:39 87 97 05/06/20 03:36 81 117/64 05/06/20 03:34 80 98 05/06/20 03:29 72 97 05/06/20 03:24 91 H 97 050620 03:19 82 142/68 H 98 05/06/20 03:17 164 H 141/65 H 08/18/19 03:15 89 133/70 08/18/19 03:14 86 98 08/18/19 03:13 82 146/69 H 08/18/19 03:11 76 149/73 H 08/18/19 03:10 85 150/70 H 08/18/19 03:09 88 154/73 H 98 08/18/19 03:08 88 141/69 H 08/18/19 03:07 83 141/73 H 08/18/19 03:05 90 18 134/73 08/18/19 03:04 92 H 98 08/18/19 03:03 93 H 140/88 08/18/19 03:00 82 140/84 08/18/19 02:59 84 99 08/18/19 02:54 94 H 147/89 H 99 08/18/19 02:51 105 H 91 08/18/19 02:49 90 99 08/18/19 02:44 85 98 08/18/19 02:40 85 145/71 H 08/18/19 02:39 93 H 100 08/18/19 02:23 93 H 99 08/18/19 02:18 82 99 08/18/19 02:13 77 100 08/18/19 02:08 86 97 08/18/19 02:03 82 98 08/18/19 01:58 86 96 08/18/19 01:53 77 99 08/18/19 00:59 98.1 F 75 18 134/66 08/18/19 00:55 75 134/66 Coding Level of Care Code None Diagnoses Gestational hypertension O13.9
[2019-08-18] MEDS: fentaNYL 2MCG/ML ROPIV 1.25MG/ML 100 ML BAG EPI PRN ×3 (11:45→22:36)
[2019-08-18] MEDS ORDERED: Nursing to Pharmacy Communication ONE ×2 (13:14→20:04)
--- NOTE | 2019-08-18 15:34 | Labor Progress Brief Note ---
Date of Service August 18, 2019 Subjective Reason For Note: Routine Evaluation Assessment & Plan (1) Gestational hypertension: (2) Supervision of normal intrauterine in primigravida: Physical Exam Genitourinary: Manual OB Exam: + cervical dilation 4 cm, + cervical effacement 50%, + station high and + amniotic fluid (AROM) bloody OB Exam Monitor Tracing: + external FHT monitor used, + external uterine monitor used, + category I and + normal FHT variability; no early decelerations present, no late decelerations present and no variable decelerations Results & Data Vital Signs (Past 12 Hours) Vital Signs Temp Pulse Resp BP Pulse Ox 08/18/19 15:29 80 96 08/18/19 15:24 92 H 95 08/18/19 15:22 87 93 08/18/19 15:20 94 H 116/59 L 08/18/19 15:19 93 H 95 08/18/19 15:15 92 H 94 08/18/19 15:14 87 95 08/18/19 15:09 82 96 08/18/19 15:05 85 18 122/63 08/18/19 15:04 86 96 08/18/19 14:59 96 H 96 08/18/19 14:54 83 98 08/18/19 14:50 36.8 C 84 20 131/62 08/18/19 14:49 89 98 08/18/19 14:44 77 98 08/18/19 14:39 82 100 08/18/19 14:35 76 20 137/74 08/18/19 14:34 78 100 08/18/19 14:29 86 99 08/18/19 14:24 84 99 08/18/19 14:20 73 140/67 08/18/19 14:19 77 100 08/18/19 14:14 77 100 08/18/19 14:10 36.7 C 20 08/18/19 14:09 78 99 08/18/19 14:05 76 132/63 08/18/19 14:04 81 99 08/18/19 13:59 82 100 08/18/19 13:54 77 100 08/18/19 13:51 75 124/58 L 08/18/19 13:49 76 97 08/18/19 13:44 78 97 08/18/19 13:39 72 99 08/18/19 13:35 75 125/58 L 08/18/19 13:34 76 100 05 13:29 76 100 05 13:24 74 100 05 13:20 73 128/62 05 13:19 74 99 08/18/19 13:14 72 99 08/18/19 13:09 81 98 08/18/19 13:05 75 119/55 L 08/18/19 13:04 81 99 08/18/19 12:59 92 H 98 08/18/19 12:54 86 99 08/18/19 12:50 81 129/65 05 12:49 79 96 08/18/19 12:44 80 96 08/18/19 12:39 80 95 08/18/19 12:36 76 127/65 08/18/19 12:34 81 95 08/18/19 12:29 80 95 08/18/19 12:24 83 97 08/18/19 12:20 78 127/64 08/18/19 12:19 81 95 08/18/19 12:14 79 97 08/18/19 12:09 90 98 08/18/19 12:07 77 128/66 08/18/19 12:04 82 97 08/18/19 12:00 18 08/18/19 11:59 77 97 08/18/19 11:54 80 98 08/18/19 11:52 84 132/71 08/18/19 11:49 78 97 08/18/19 11:44 73 97 08/18/19 11:39 78 96 08/18/19 11:36 75 124/63 05 11:34 78 97 0506 11:30 18 08/18/19 11:29 77 97 05 11:24 71 97 0506 11:21 75 127/69 0506 11:19 84 98 08/18/19 11:14 72 97 08/18/19 11:09 80 98 08/18/19 11:05 36.7 C 80 20 126/67 0506 11:04 84 99 050620 10:59 81 100 0506 10:54 79 100 05 10:51 84 124/58 L 05/06/20 10:50 81 128/60 05/06/20 10:49 80 99 05/06/20 10:44 77 99 05/06/20 10:39 84 95 05/06/20 10:35 81 127/58 L 05/06/20 10:34 82 95 05/06/20 10:29 86 95 05/06/20 10:28 89 94 05/06/20 10:24 82 95 05/06/20 10:20 80 119/55 L 05/0620 10:19 85 95 05/06/20 10:14 84 96 05/06/20 10:09 78 97 05/06/20 10:06 77 18 116/57 L 050620 10:04 76 98 05/0620 09:59 78 98 05/0620 09:54 83 99 05/06/20 09:51 81 128/63 05/06/20 09:49 75 97 05/06/20 09:44 89 96 05/0620 09:40 86 94 050620 09:39 86 95 050620 09:37 88 20 121/59 L 050620 09:34 88 96 05/06/20 09:29 92 H 97 05/06/20 09:24 93 H 97 05/0620 09:21 76 131/68 05/06/20 09:20 20 05/0620 09:19 98 H 98 05/06/20 09:14 85 96 05/06/20 09:09 96 H 96 05/0620 09:05 82 18 127/62 05/0620 09:04 81 96 05/0620 08:59 83 96 05/06/20 08:54 82 98 05/06/20 08:52 82 129/67 05/06/20 08:49 81 98 05/06/20 08:44 79 97 05/06/20 08:39 89 97 05/06/20 08:36 85 122/63 05/06/20 08:34 76 98 05/06/20 08:29 81 99 05/0620 08:24 93 H 100 05/0620 08:21 76 122/55 L 050620 08:19 85 98 05/0620 08:14 80 99 05/0620 08:09 80 99 05/06/20 08:06 77 18 117/57 L 08/18/19 08:04 79 97 08/18/19 07:59 83 97 08/18/19 07:54 88 98 08/18/19 07:50 82 116/56 L 08/18/19 07:49 84 96 08/18/19 07:44 79 96 08/18/19 07:39 81 96 08/18/19 07:36 77 125/56 L 08/18/19 07:34 88 98 08/18/19 07:29 78 99 08/18/19 07:24 81 96 08/18/19 07:21 75 18 125/59 L 08/18/19 07:19 74 98 08/18/19 07:14 74 99 08/18/19 07:09 82 100 08/18/19 07:05 36.7 C 93 H 20 131/62 08/18/19 07:04 83 99 08/18/19 06:59 95 H 98 08/18/19 06:54 81 97 08/18/19 06:51 81 130/59 L 08/18/19 06:49 91 H 96 08/18/19 06:44 82 96 08/18/19 06:39 91 H 99 08/18/19 06:36 85 133/63 06 06:35 79 137/64 08/18/19 06:34 80 99 08/18/19 06:29 92 H 96 08/18/19 06:24 80 97 08/18/19 06:21 86 124/60 0506 06:19 84 96 08/18/19 06:14 82 97 06 06:09 85 99 06 06:05 83 134/65 05 06:04 88 98 06 05:59 82 99 0506 05:55 16 05 05:54 80 99 08/18/19 05:49 78 100 08/18/19 05:44 83 99 06 05:39 89 99 08/18/19 05:34 81 99 0506 05:30 37.0 C 16 08/18/19 05:29 78 99 0506 05:25 18 08/18/19 05:24 88 99 08/18/19 05:19 88 96 08/18/19 05:14 85 96 08/18/19 05:09 81 96 08/18/19 05:04 89 96 08/18/19 04:59 84 95 08/18/19 04:55 81 94 08/18/19 04:54 80 95 08/18/19 04:49 79 95 08/18/19 04:48 86 94 08/18/19 04:44 86 96 08/18/19 04:39 81 97 08/18/19 04:35 18 08/18/19 04:34 88 98 08/18/19 04:30 79 130/72 08/18/19 04:29 87 96 08/18/19 04:24 70 95 08/18/19 04:21 86 107/58 L 08/18/19 04:19 86 95 08/18/19 04:15 82 94 08/18/19 04:14 85 96 08/18/19 04:09 68 96 08/18/19 04:06 83 108/58 L 91 08/18/19 04:05 16 08/18/19 04:04 92 H 98 08/18/19 03:59 73 96 08/18/19 03:54 81 98 08/18/19 03:52 76 121/68 93 08/18/19 03:49 76 97 08/18/19 03:44 79 97 08/18/19 03:39 87 97 08/18/19 03:36 81 117/64 08/18/19 03:34 80 98 Coding Level of Care Code None Diagnoses Gestational hypertension O13.9 Supervision of normal intrauterine in primigravida Z34.00
--- NOTE | 2019-08-18 17:20 | Labor Progress Brief Note ---
Date of Service August 18, 2019 Assessment & Plan (1) Gestational hypertension: Progressing, Cat 1 (2) Supervision of normal intrauterine in primigravida: Physical Exam Genitourinary: Manual OB Exam: + cervical dilation 5 cm, + cervical effacement 80%, + station -2 and + amniotic fluid (AROM) bloody OB Exam Monitor Tracing: + external FHT monitor used, + external uterine monitor used, + category I and + normal FHT variability; no early decelerations present, no late decelerations present and no variable decelerations Results & Data Vital Signs (Past 12 Hours) Vital Signs Temp Pulse Resp BP Pulse Ox 08/18/19 17:14 103 H 99 08/18/19 17:09 77 97 08/18/19 17:05 82 136/63 08/18/19 17:04 79 97 08/18/19 16:59 75 96 08/18/19 16:54 75 96 08/18/19 16:50 76 129/58 L 08/18/19 16:49 77 97 08/18/19 16:44 36.9 C 76 18 98 08/18/19 16:39 75 98 08/18/19 16:35 81 18 127/57 L 08/18/19 16:34 81 100 08/18/19 16:33 75 133/61 08/18/19 16:29 78 99 08/18/19 16:24 76 97 08/18/19 16:20 75 116/55 L 08/18/19 16:19 75 98 08/18/19 16:14 80 96 08/18/19 16:09 75 98 08/18/19 16:05 79 131/68 08/18/19 16:04 80 99 08/18/19 15:59 89 97 08/18/19 15:54 85 96 08/18/19 15:51 78 130/63 08/18/19 15:49 88 98 08/18/19 15:44 91 H 98 08/18/19 15:39 83 96 08/18/19 15:35 86 20 122/58 L 08/18/19 15:34 82 96 08/18/19 15:33 89 94 08/18/19 15:29 80 96 08/18/19 15:24 92 H 95 08/18/19 15:22 87 93 08/18/19 15:20 94 H 116/59 L 08/18/19 15:19 93 H 95 08/18/19 15:15 92 H 94 08/18/19 15:14 87 95 08/18/19 15:09 82 96 08/18/19 15:05 85 18 122/63 08/18/19 15:04 86 96 08/18/19 14:59 96 H 96 08/18/19 14:54 83 98 08/18/19 14:50 36.8 C 84 20 131/62 08/18/19 14:49 89 98 08/18/19 14:44 77 98 08/18/19 14:39 82 100 08/18/19 14:35 76 20 137/74 05 14:34 78 100 08/18/19 14:29 86 99 08/18/19 14:24 84 99 08/18/19 14:20 73 140/67 08/18/19 14:19 77 100 08/18/19 14:14 77 100 08/18/19 14:10 36.7 C 20 08/18/19 14:09 78 99 08/18/19 14:05 76 132/63 08/18/19 14:04 81 99 08/18/19 13:59 82 100 08/18/19 13:54 77 100 08/18/19 13:51 75 124/58 L 08/18/19 13:49 76 97 08/18/19 13:44 78 97 08/18/19 13:39 72 99 08/18/19 13:35 75 125/58 L 08/18/19 13:34 76 100 08/18/19 13:29 76 100 08/18/19 13:24 74 100 08/18/19 13:20 73 128/62 08/18/19 13:19 74 99 08/18/19 13:14 72 99 08/18/19 13:09 81 98 08/18/19 13:05 75 119/55 L 08/18/19 13:04 81 99 08/18/19 12:59 92 H 98 08/18/19 12:54 86 99 08/18/19 12:50 81 129/65 08/18/19 12:49 79 96 08/18/19 12:44 80 96 08/18/19 12:39 80 95 05/06/20 12:36 76 127/65 05/0620 12:34 81 95 05/06/20 12:29 80 95 05/0620 12:24 83 97 05/0620 12:20 78 127/64 05/0620 12:19 81 95 05/0620 12:14 79 97 050620 12:09 90 98 050620 12:07 77 128/66 050620 12:04 82 97 0506 12:00 18 05 11:59 77 97 050620 11:54 80 98 05 11:52 84 132/71 0506 11:49 78 97 0506 11:44 73 97 0506 11:39 78 96 0506 11:36 75 124/63 050620 11:34 78 97 05 11:30 18 08/18/19 11:29 77 97 050620 11:24 71 97 05 11:21 75 127/69 05/0620 11:19 84 98 0506 11:14 72 97 05/0620 11:09 80 98 050620 11:05 36.7 C 80 20 126/67 0506 11:04 84 99 050620 10:59 81 100 05/0620 10:54 79 100 050620 10:51 84 124/58 L 050620 10:50 81 128/60 05/0620 10:49 80 99 05/0620 10:44 77 99 05/0620 10:39 84 95 05/0620 10:35 81 127/58 L 050620 10:34 82 95 05/0620 10:29 86 95 05/0620 10:28 89 94 05/0620 10:24 82 95 05/06/20 10:20 80 119/55 L 050620 10:19 85 95 050620 10:14 84 96 05/0620 10:09 78 97 05/0620 10:06 77 18 116/57 L 0506 10:04 76 98 0506 09:59 78 98 0506/20 09:54 83 99 05/0620 09:51 81 128/63 05/06/20 09:49 75 97 05/0620 09:44 89 96 05/0620 09:40 86 94 050620 09:39 86 95 050620 09:37 88 20 121/59 L 0620 09:34 88 96 050620 09:29 92 H 97 0506 09:24 93 H 97 05 09:21 76 131/68 05/0620 09:20 20 05 09:19 98 H 98 0506 09:14 85 96 0506 09:09 96 H 96 08/18/19 09:05 82 18 127/62 0506 09:04 81 96 050620 08:59 83 96 0520 08:54 82 98 05/0620 08:52 82 129/67 050620 08:49 81 98 050620 08:44 79 97 050620 08:39 89 97 050620 08:36 85 122/63 05/06/20 08:34 76 98 05/06/20 08:29 81 99 05/0620 08:24 93 H 100 050620 08:21 76 122/55 L 0620 08:19 85 98 050620 08:14 80 99 050620 08:09 80 99 050620 08:06 77 18 117/57 L 0620 08:04 79 97 050620 07:59 83 97 050620 07:54 88 98 050620 07:50 82 116/56 L 0506/20 07:49 84 96 05/06/20 07:44 79 96 05/06/20 07:39 81 96 05/0620 07:36 77 125/56 L 050620 07:34 88 98 050620 07:29 78 99 05/06/20 07:24 81 96 05/06/20 07:21 75 18 125/59 L 0506/20 07:19 74 98 05/0620 07:14 74 99 0506/20 07:09 82 100 05/06/20 07:05 36.7 C 93 H 20 131/62 08/18/19 07:04 83 99 08/18/19 06:59 95 H 98 08/18/19 06:54 81 97 08/18/19 06:51 81 130/59 L 08/18/19 06:49 91 H 96 08/18/19 06:44 82 96 08/18/19 06:39 91 H 99 08/18/19 06:36 85 133/63 08/18/19 06:35 79 137/64 08/18/19 06:34 80 99 08/18/19 06:29 92 H 96 08/18/19 06:24 80 97 08/18/19 06:21 86 124/60 08/18/19 06:19 84 96 08/18/19 06:14 82 97 08/18/19 06:09 85 99 08/18/19 06:05 83 134/65 08/18/19 06:04 88 98 08/18/19 05:59 82 99 08/18/19 05:55 16 08/18/19 05:54 80 99 08/18/19 05:49 78 100 08/18/19 05:44 83 99 08/18/19 05:39 89 99 08/18/19 05:34 81 99 08/18/19 05:30 37.0 C 16 08/18/19 05:29 78 99 08/18/19 05:25 18 08/18/19 05:24 88 99 08/18/19 05:19 88 96 Coding Level of Care Code None Diagnoses Gestational hypertension O13.9 Supervision of normal intrauterine in primigravida Z34.00
[2019-08-18] MEDS ORDERED: ACETAMINOPHEN 325 MG TAB PO PRN (23:59)
[2019-08-18] MEDS ORDERED: DIPHTHERIA/TETANUS/PERTUSSIS 0.5 ML SYR/VIAL IM ONE (23:59)
[2019-08-18] MEDS ORDERED: HYDROCORTISONE ACETATE 25 MG SUPP PR PRN (23:59)
[2019-08-18] MEDS ORDERED: bisacodyL 10 MG SUPP PR PRN (23:59)
[2019-08-18] MEDS ORDERED: BENZOCAINE 20% AER SPR 82.5 GM CAN EXT PRN (23:59)
[2019-08-18] MEDS ORDERED: SUPERCREAM 0.870% 15 GM JAR EXT PRN (23:59)
--- NOTE | 2019-08-19 00:07 | Anesthesia Procedure Note ---
Date of Service August 19, 2019 Anesthesia Post Epidural Note Vital Signs Vital Signs: Temp Pulse Resp BP Pulse Ox 36.8 C 82 18 128/71 93 08/18/19 23:50 08/19/19 00:05 08/19/19 00:05 08/19/19 00:05 08/18/19 23:48 Pain Intensity Lower Back: Pain Intensity: 7 Notes Mental Status: alert / awake / arousable and participated in evaluation Nausea / Vomiting: adequately controlled Pain: adequately controlled Airway Patency, RR, SpO2: stable & adequate BP & HR: stable & adequate Hydration State: stable & adequate Neuraxial Anesthesia: was administered and sensory block is resolving Anesthetic Complications: no major complications apparent and Pt Satisfied with anesthetic care Epidural: Removed without complications and With tip intact
--- NOTE | 2019-08-19 01:55 | Delivery Summary ---
DATE OF OPERATION: 08/19/2019 PROCEDURE: Normal spontaneous vaginal delivery with second-degree perineal laceration repair. SURGEON: Chucho Maurice MD PREOPERATIVE DIAGNOSES: 1. Single intrauterine at 37 weeks 0 days gestational age. 2. Gestational hypertension. POSTOPERATIVE DIAGNOSES: 1. Single intrauterine at 37 weeks 0 days gestational age. 2. Gestational hypertension. 3. Status post delivery. ESTIMATED BLOOD LOSS: 300 mL. DRAINS: None. FLUIDS: Continuous lactated ringer. URINE OUTPUT: Not measured. COMPLICATIONS: None. FINDINGS: Viable female infant with weight and Apgars pending. INDICATIONS: The patient is a 33-year-old G1, P0 admitted at 37 weeks 0 days gestational age for induction of labor for gestational hypertension. At initial presentation, the patient was noted to have a Awad bulb in place, which was placed the night prior and was angel painfully. She was started on oxytocin per regular protocol and Awad bulb was removed. The patient received an epidural for anesthesia. Oxytocin was continued until approximately early afternoon at which time the patient underwent artificial rupture of membranes for clear fluid. She continued to progress in labor to complete-complete +2 station, at which time she felt the urge to push. DESCRIPTION OF PROCEDURE: The patient progressed to 10 cm dilated, 100% effaced, +2 station, pushed over intact perineum with epidural anesthesia and delivered a viable female , weight and Apgars as noted above. Head of the delivered in THEO position, restituted to right transverse. A loose nuchal was noted which was easily reduced. Body and shoulders quickly followed. was delivered to maternal abdomen which showed signs of activity and a 1-minute delayed cord clamping was initiated. After 1-minute the cord was double clamped and cut. was then taken over to the waiting nursery staff for further evaluation for further evaluation. Cord segment and cord blood was obtained. Attention was then turned to deliver the placenta, which was delivered intact with 3-vessel cord with gentle cord traction. On inspection of the perineum, vagina, and cervix, there was noted to be a second degree perineal laceration which was repaired with 3-[address] with a traditional crown stitch. Needle, sponge and instrument counts were correct at the completion of the case. Both mother and stable in the immediate post-delivery period. I attest to the content of the Intraoperative Record and any orders documented therein. Any exception s are noted below.
[2019-08-19] MEDS: IBUPROFEN 600 MG TAB PO PRN ×3 (04:42→18:12)
[2019-08-19 06:43] LABS: Hematocrit (blood only) 27.4 % (37-47); Hemoglobin 8.8 g/dL (12.0-16.0)
--- NOTE | 2019-08-19 07:38 | Obstetrical Progress Note ---
Date of Service August 19, 2019 Assessment & Plan (1) care and examination: Day 1 s/p . Doing well. Continue routine care Subjective Ambulation: ambulating normally Voiding: no voiding problems Passing Gas:: Yes Diet Tolerance:: regular diet Lochia:: Moderate Feeding Type:: breast feeding Physical Exam Constitutional WD/WN, vitals as above Respiratory normal respiratory effort; no respiratory distress and no labored breathing Gastrointestinal (Abdomen) Inspection/Auscultation: abdomen normal to inspection; abdomen not distended Percussion/Palpation: abdomen soft; abdomen nontender, no guarding and abdomen not rigid Genitourinary OB Exam Abdomen: + fundal height Fundus: + firm and + relation to umbilicus (Below); not tender and not boggy Results & Data Vital Signs (Past 12 Hours) Vital Signs Temp Pulse Resp BP Pulse Ox 08/19/19 04:30 37.2 C 18 08/19/19 02:05 83 120/55 L 08/19/19 01:50 86 18 124/56 L 08/19/19 01:35 82 118/57 L 08/19/19 01:20 82 18 115/57 L 08/19/19 01:05 77 132/68 08/19/19 00:50 80 18 126/66 08/19/19 00:35 81 18 125/56 L 08/19/19 00:20 86 18 119/59 L 08/19/19 00:05 82 18 128/71 08/18/19 23:50 36.8 C 82 18 130/65 08/18/19 23:48 92 H 93 08/18/19 23:45 82 98 08/18/19 23:40 84 99 08/18/19 23:35 92 H 125/85 98 08/18/19 23:30 100 H 97 08/18/19 23:27 90 89 L 08/18/19 23:25 100 H 98 08/18/19 23:20 104 H 97 08/18/19 23:15 99 H 98 08/18/19 23:13 107 H 86 L 08/18/19 23:10 87 99 08/18/19 23:07 91 H 86 L 08/18/19 23:05 104 H 137/55 L 97 08/18/19 23:00 88 84 L 08/18/19 22:55 88 99 08/18/19 22:50 85 139/72 98 08/18/19 22:45 37.1 C 76 96 08/18/19 22:40 73 97 08/18/19 22:35 88 128/70 100 08/18/19 22:30 77 100 08/18/19 22:25 81 97 08/18/19 22:21 74 125/57 L 08/18/19 22:20 74 100 08/18/19 22:15 81 98 08/18/19 22:10 78 98 08/18/19 22:05 78 128/79 100 08/18/19 22:00 85 99 08/18/19 21:55 78 98 08/18/19 21:51 75 125/57 L 08/18/19 21:50 77 97 08/18/19 21:45 75 98 08/18/19 21:40 77 98 08/18/19 21:35 81 130/58 L 100 08/18/19 21:30 93 H 97 08/18/19 21:25 72 97 08/18/19 21:20 77 123/62 97 08/18/19 21:15 76 99 08/18/19 21:10 82 99 08/18/19 21:05 81 114/58 L 100 08/18/19 21:00 36.6 C 76 99 08/18/19 20:54 76 98 08/18/19 20:51 78 121/62 08/18/19 20:49 78 98 08/18/19 20:44 82 100 08/18/19 20:39 83 100 08/18/19 20:36 82 114/56 L 08/18/19 20:34 76 100 08/18/19 20:29 82 98 08/18/19 20:24 105 H 61 L 08/18/19 20:21 77 129/62 08/18/19 20:19 76 99 08/18/19 20:14 76 98 08/18/19 20:09 79 99 08/18/19 20:06 75 119/56 L 08/18/19 20:04 75 97 08/18/19 19:59 82 97 08/18/19 19:54 88 100 08/18/19 19:51 82 128/59 L 08/18/19 19:49 78 100 08/18/19 19:44 79 97 08/18/19 19:39 89 100
[2019-08-19] MEDS: DOCUSATE SODIUM 100 MG CAP PO SCH ×2 (08:35→21:22)
[2019-08-19] MEDS: PRENATAL VITAMIN 1 TAB PO SCH (08:35)
[2019-08-19] MEDS: FERROUS SULFATE 325 MG TAB PO SCH (08:35)
[2019-08-19] MEDS: ESCITALOPRAM OXALATE 10 MG TAB PO SCH (08:36)
[2019-08-19] MEDS ORDERED: bisacodyL 5 MG TABEC PO SCH (20:00)
--- NOTE | 2019-08-20 06:52 | Obstetrical Progress Note ---
Date of Service August 20, 2019 Assessment & Plan (1) Supervision of normal intrauterine in primigravida: - doing well - BP stable - ready for d/c - instructions given - f/u in 6 weeks Subjective Ambulation: ambulating normally Voiding: no voiding problems Feeding Type:: breast feeding Physical Exam Constitutional WD/WN, vitals as above Gastrointestinal (Abdomen) Fundus firm below umbilicus Musculoskeletal No deep calf tenderness Results & Data Vital Signs (Past 12 Hours) Vital Signs Temp Pulse Resp BP 08/20/19 00:15 98.1 F 76 16 124/66 08/19/19 20:25 98.2 F 91 H 18 131/70
[2019-08-20] MEDS: IBUPROFEN 600 MG TAB PO PRN (08:25)
[2019-08-20] MEDS: DOCUSATE SODIUM 100 MG CAP PO SCH (08:26)
[2019-08-20] MEDS: FERROUS SULFATE 325 MG TAB PO SCH (08:27)
[2019-08-20] MEDS: PRENATAL VITAMIN 1 TAB PO SCH (08:27)
[2019-08-20] MEDS: ESCITALOPRAM OXALATE 10 MG TAB PO SCH (08:27)
== END 2019-08-20 11:35 | disposition home or self-care (01) | DRG 807 ==
LOC: 4S1 00:43 → 4S2 08-19 04:51

== ENCOUNTER 2022-10-01 10:33 | Inpatient (IN) ==
--- NOTE | 2022-10-01 11:07 | Emergency Department Note ---
Impression & Plan Syncope, Generalized weakness, Positive Lyme disease serology ED Provider Note NAME: CORINE FLOREZ AGE: 37 SEX: F : 1985 ARRIVES VIA: Ambulance INFORMANT: Patient, ED PROVIDER(S): Yosvany Chakraborty MD CHIEF COMPLAINT: Syncope, generalized weakness MEDICAL DECISION MAKING: Patient does present due to concern for syncope and generalized weakness. Next IV was established blood was obtained. Patient did have some basilar skull pain and does not know whether or not she fell or struck her head. Patient does have a nonfocal neurologic exam. IV was established blood work was obtained and the patient did have an EKG completed along with COVID combo test CT of the head the patient was treated symptomatically with IV fluids IV Zofran and IV Toradol. Patient's EKG is grossly unremarkable. The patient's blood work also grossly unremarkable with a normal white count H&H and platelet count. Mild hyponatremia noted. BSG 108 and 112 but nonfasting not DKA. TSH not elevated urinalysis negative the patient's COVID flu negative. CT head negative. Positive reassessment the patient was still not feeling well so the patient was ordered Pepcid and GI cocktail. Patient was subsequently evaluated thereafter was still not feeling well. Chest x-ray obtained which is unremarkable. Clinically the patient appears unwell and that her blood work and imaging is reassuring. Given the patient's significant weakness which is generalized do not think that it is unreasonable for hospitalist consult. I did speak with the on-call hospital service Dr. Smith and the patient was admitted to the medicine service. Prior /Outside records reviewed: I did review a gynecology office visit with Dr. Du patient had been seen for pelvic pain at that time. Was thought that the patient may have pain by collapsing ovarian cyst. Differential diagnosis: Vasovagal event, dehydration, infection, hypoglycemia, electrolyte abnormalities, cardiac sources, intracerebral event, pulmonary embolism, seizure, toxicologic, neurologic, as well as other pathologies. Diagnostics, as interpreted by me: ECG: Normal sinus rhythm, rate of 86, normal intervals normal axis T wave flattening in lead III no ST elevations, T wave version in V2. No significant change for comparison March 08, 2022. Cardiac monitoring: An order was placed for continuous cardiac monitoring. The monitor shows a rate of 95 with sinus rhythm. Patient was placed on pulse oximetry Medical decision rules: none Imaging studies: See below I informally reviewed the patient's CT of the head which shows no obvious ICH. HPI: Patient presents due to concern for syncope. 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 The patient reportedly was out for approximate 3 to 5 minutes. The patient does complain of some generalized shakiness but the patient did not have any tonic- clonic activity at the time of her episode of syncope. No tongue biting or incontinence. Patient was recently taken off control about 3 weeks ago. The patient denies any chest pains or shortness of breath. The patient has had associated nausea and did have an episode of diarrhea upon presentation. Patient denies any known sick contacts or recent travel. No upper respiratory symptoms. The patient does use alcohol socially but denies any tobacco or drug use. Patient is accompanied by her Jerry who is a [employer] precinct police lieutenant. PAST MEDICAL HISTORY: See Below PAST SURGICAL HISTORY: See Below SOCIAL HISTORY: See Below HOME MEDICATIONS: See Below ALLERGIES: See Below VITALS: See Below PHYSICAL EXAMINATION: GENERAL: NAD, fatigable in appearance, non-toxic. EYE EXAM: Normal conjunctiva. PERRL, no anisocoria and EOM's grossly intact w/o pain. NECK: Supple, no nuchal rigidity, no adenopathy, non-tender. No signs of meningismus. FROM of the neck with good chin to chest and neck extension. No stridor. LUNGS: Clear to auscultation. Normal chest wall mechanics. HEART: NSR, no MRG. ABDOMEN: Abdomen soft, non-tender, no masses, no rebound or guarding. BACK: No CVA TTP. SKIN: No rashes and no bruising. UPPER EXTREMITIES: Upper extremities are grossly normal. LOWER EXTREMITIES: Grossly normal, no edema. NEURO EXAM: A&O x3, cranial nerves II-XII grossly intact, normal speech, moves all 4 extremities. Good [id number], no drift and no sensory deficits Past Med/Surg History Medical History Acne Allergic rhinitis Anxiety Chronic sinusitis Female infertility Hirsutism Migraine headache Moderate cervical dysplasia Ovarian cyst Post-COVID chronic cough Premenstrual syndrome Renal lesion L, seen on abdominal CT in 2014 Secondary amenorrhea TMJ syndrome Vitamin D deficiency Surgical History History of appendectomy (10/12/12) History of breast augmentation (04/2010) History of laparoscopy (11/2017) History of oral surgery S/p breast implant removal S/P LEEP (09/2011) Family History Mother Adult celiac disease Endometriosis Non-Hodgkin lymphoma Anemia Sister Endometriosis Grandmother (Paternal) Diabetes Aunt Diabetes *Paternal Grandmother (Maternal) Anemia Hypertension Hypercholesteremia Denies family history of Ovarian cancer Prostate cancer Myocardial infarction Breast cancer Colorectal cancer Social History Smoking Status: Former smoker Second Hand Exposure: No; Do You Dip or Chew Tobacco: No; Hx Alcohol Use: Yes Hx Substance Use: No Preferred Language: Uzbek Communication Ability: Effective Visual Impairment: No Limitations Hearing Ability: Normal [place] Required: No Beliefs That Will Affect Care: None marital status: marital status details: Jerry Florez [phone] Current Living Situation: Spouse Current Living Situation Comment: 2 dogs current occupational status: employed 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[employer] @ [employer] Feels Safe at Home: Yes Dental Care, Regularly: Yes Physical Activity Frequency: 3-4 Times per Week Seatbelt Use: always Assistive Devices: None Allergies Allergies Allergy/AdvReac Type Severity Reaction Status Date / Time adhesive tape Allergy Mild Rash Verified 07/17/22 14:32 latex Allergy Mild Rash Verified 07/17/22 14:32 nitrofurantoin AdvReac Unknown Gastrointestinal Verified 07/17/22 14:32 Upset hydrocodone [From Vicodin] AdvReac GI upset Verified 07/17/22 14:32 Home Meds Home Medications Medication Instructions Recorded Confirmed multivitamin 1 tab PO DAILY 11/23/20 10/01/22 Previous Rx's Medication Instructions Recorded valacyclovir 1 gram tablet 1,000 mg PO BID PRN cold sore 3 04/23/22 (Valtrex) days #30 tabs clindamycin 1 %-benzoyl peroxide 5 1 applic topical BID #50 grams 03/07/23 % topical gel Results & Data (ED) Vital Signs Vital Signs - 24 hr 10/01/22 10:44 10/01/22 11:17 10/01/22 11:00 Temperature 36.8 C Temperature Source Oral Pulse Rate 88 Pulse Rate [Left Apical] Pulse Rate from SpO2 Sensor Pulse Rhythm [Left Apical] Pulse Strength [Left Apical] Respiratory Rate 20 Respiratory Effort / Characteristics Respiratory Depth Blood Pressure 128/76 141/86 H Blood Pressure [Left Arm] Blood Pressure Mean 93 104 Blood Pressure Mean [Left Arm] Pulse Oximetry 99 Oxygen Delivery Method Room Air Room Air Sepsis Recent Fever Within 48 Hours No Sepsis New/Unexplained Change in Mental Status No Sepsis Action Taken by Nursing No Action Required 10/01/22 11:00 10/01/22 11:30 10/01/22 11:30 Temperature Temperature Source Pulse Rate 92 H 92 H Pulse Rate [Left Apical] Pulse Rate from SpO2 Sensor 92 H 90 Pulse Rhythm [Left Apical] Pulse Strength [Left Apical] Respiratory Rate 15 13 Respiratory Effort / Characteristics Respiratory Depth Blood Pressure 140/71 Blood Pressure [Left Arm] Blood Pressure Mean 107 Blood Pressure Mean [Left Arm] Pulse Oximetry 98 97 Oxygen Delivery Method Room Air Room Air Sepsis Recent Fever Within 48 Hours Sepsis New/Unexplained Change in Mental Status Sepsis Action Taken by Nursing 10/01/22 12:00 10/01/22 12:54 10/01/22 12:44 Temperature Temperature Source Pulse Rate 83 93 H Pulse Rate [Left Apical] Pulse Rate from SpO2 Sensor 86 98 H Pulse Rhythm [Left Apical] Pulse Strength [Left Apical] Respiratory Rate 15 Respiratory Effort / Characteristics Respiratory Depth Blood Pressure Blood Pressure [Left Arm] Blood Pressure Mean Blood Pressure Mean [Left Arm] Pulse Oximetry 97 96 Oxygen Delivery Method Room Air Room Air Sepsis Recent Fever Within 48 Hours Sepsis New/Unexplained Change in Mental Status Sepsis Action Taken by Nursing 10/01/22 13:00 10/01/22 13:30 10/01/22 13:30 Temperature Temperature Source Pulse Rate 75 84 Pulse Rate [Left Apical] Pulse Rate from SpO2 Sensor 75 84 Pulse Rhythm [Left Apical] Pulse Strength [Left Apical] Respiratory Rate 17 15 Respiratory Effort / Characteristics Respiratory Depth Blood Pressure 114/62 Blood Pressure [Left Arm] Blood Pressure Mean 76 Blood Pressure Mean [Left Arm] Pulse Oximetry 97 100 Oxygen Delivery Method Room Air Room Air Sepsis Recent Fever Within 48 Hours Sepsis New/Unexplained Change in Mental Status Sepsis Action Taken by Nursing 10/01/22 14:00 10/01/22 14:00 10/01/22 15:23 Temperature Temperature Source Pulse Rate 106 H Pulse Rate [Left Apical] 86 Pulse Rate from SpO2 Sensor 106 H Pulse Rhythm [Left Apical] Regular Pulse Strength [Left Apical] Normal Respiratory Rate 13 16 Respiratory Effort / Characteristics Non-Labored Spontaneous Respiratory Depth Normal Blood Pressure 109/68 Blood Pressure [Left Arm] Blood Pressure Mean 81 Blood Pressure Mean [Left Arm] Pulse Oximetry 99 98 Oxygen Delivery Method Room Air Room Air Sepsis Recent Fever Within 48 Hours Sepsis New/Unexplained Change in Mental Status Sepsis Action Taken by Nursing 10/01/22 16:22 10/01/22 18:10 Temperature Temperature Source Pulse Rate Pulse Rate [Left Apical] 81 88 Pulse Rate from SpO2 Sensor Pulse Rhythm [Left Apical] Regular Regular Pulse Strength [Left Apical] Normal Respiratory Rate 16 20 Respiratory Effort / Characteristics Non-Labored Spontaneous Non-Labored Spontaneous Respiratory Depth Normal Normal Blood Pressure Blood Pressure [Left Arm] 130/78 Blood Pressure Mean Blood Pressure Mean [Left Arm] 95 Pulse Oximetry 98 98 Oxygen Delivery Method Room Air Room Air Sepsis Recent Fever Within 48 Hours Sepsis New/Unexplained Change in Mental Status Sepsis Action Taken by Detention Medications Current Medication List: was personally reviewed by me Laboratory Data Attestation: I reviewed the patient's lab results. 10/01/22 11:07 10/01/22 11:07 Lab Results 10/01/22 10/01/22 10/01/22 Range/Units 11:00 11:00 11:04 WBC (4.8-10.8) K/ul RBC (4.20-5.40) M/uL Hgb (12.0-16.0) g/dl Hct (37.0-47.0) % MCV (80.0-100.0) fL MCH (25.0-34.0) pg MCHC (32.0-36.0) g/dL RDW Std Deviation (36.4-46.3) fL RDW Coeff of Reyes (11.5-14.5) % Plt Count (130-400) K/uL MPV (9.4-12.4) fL Immature Gran % (Auto) % Neut % (Auto) % Lymph % (Auto) % [place] % (Auto) % Eos % (Auto) % Baso % (Auto) % Neut # (Auto) (1.40-6.50) K/uL Lymph # (Auto) (1.2-3.4) K/uL [place] # (Auto) (0.11-0.59) K/uL Eos # (Auto) (0-0.50) K/uL Baso # (Auto) (0-0.2) K/uL Immature Gran # (Auto) (0.01-0.20) K/uL ESR (0-20) mm/hr PT (9.0-12.0) Seconds INR (0.9-1.1) APTT (21.0-31.0) Seconds PTT Ratio D-Dimer (0-500) ug/L FEU Sodium (136-145) mmol/L Potassium (3.5-5.1) mmol/L Chloride (98-107) mmol/L Carbon Dioxide (21-32) mmol/L Anion Gap (3-11) BUN (6-23) mg/dl Creatinine (0.6-1.2) mg/dl Est Cr Clr Drug Dosing ml/min Est GFR ( Amer) ml/min Est GFR (Non-Af Amer) ml/min BUN/Creatinine Ratio (10-20) Glucose (70-99(Fasting)) mg/dl POC Glucose 112 H (70-99) mg/dl Calcium (8.6-10.3) mg/dl Magnesium (1.7-2.4) mg/dl Total Bilirubin (0.2-1.0) mg/dl AST (13-39) U/L ALT (7-52) U/L Alkaline Phosphatase (34-104) U/L Troponin I High Sens (0-14) pg/ml C-Reactive Protein (0-0.5) mg/dl Total Protein (6.0-8.3) gm/dl Albumin (3.4-5.0) gm/dl Globulin (2.5-4.0) gm/dl Albumin/Globulin Ratio (0.9-2) TSH (0.300-4.500) uIu/ml Urine Color Yellow Urine Appearance Clear (Clear) Urine pH 6.0 (4.5-7.5) Ur Specific [place] 1.016 (1.000-1.030) Urine Protein Negative (Negative) Urine Glucose (UA) Negative (Negative) Urine Ketones Negative (Negative) Urine Blood Negative (Negative) Urine Nitrite Negative (Negative) Urine Bilirubin Negative (Negative) Urine Urobilinogen Negative (Negative) Ur Leukocyte Esterase Negative (Negative) Urine Test Negative (Negative) Lyme Disease IgG Ab (Negative) Lyme Disease IgM Ab (Negative) SARS-CoV-2 (PCR) (Negative) Influenza Type A (PCR) (Neg) Influenza Type B (PCR) (Neg) RSV (RT-PCR) (Neg) 10/01/22 10/01/22 10/01/22 Range/Units 11:07 11:07 11:07 WBC 5.89 (4.8-10.8) K/ul RBC 4.39 (4.20-5.40) M/uL Hgb 13.5 (12.0-16.0) g/dl Hct 38.4 (37.0-47.0) % MCV 87.5 (80.0-100.0) fL MCH 30.8 (25.0-34.0) pg MCHC 35.2 (32.0-36.0) g/dL RDW Std Deviation 39.7 (36.4-46.3) fL RDW Coeff of Reyes 12.4 (11.5-14.5) % Plt Count 181 (130-400) K/uL MPV 9.7 (9.4-12.4) fL Immature Gran % (Auto) 0.3 % Neut % (Auto) 67.6 % Lymph % (Auto) 24.3 % [place] % (Auto) 6.1 % Eos % (Auto) 1.2 % Baso % (Auto) 0.5 % Neut # (Auto) 3.98 (1.40-6.50) K/uL Lymph # (Auto) 1.43 (1.2-3.4) K/uL [place] # (Auto) 0.36 (0.11-0.59) K/uL Eos # (Auto) 0.07 (0-0.50) K/uL Baso # (Auto) 0.03 (0-0.2) K/uL Immature Gran # (Auto) 0.02 (0.01-0.20) K/uL ESR (0-20) mm/hr PT (9.0-12.0) Seconds INR (0.9-1.1) APTT (21.0-31.0) Seconds PTT Ratio D-Dimer (0-500) ug/L FEU Sodium 135 L (136-145) mmol/L Potassium 3.7 (3.5-5.1) mmol/L Chloride 107 (98-107) mmol/L Carbon Dioxide 21 (21-32) mmol/L Anion Gap 7 (3-11) BUN 12 (6-23) mg/dl Creatinine 0.68 (0.6-1.2) mg/dl Est Cr Clr Drug Dosing 107.8 ml/min Est GFR ( Amer) 131.3 ml/min Est GFR (Non-Af Amer) 113.3 ml/min BUN/Creatinine Ratio 17.6 (10-20) Glucose 108 H (70-99(Fasting)) mg/dl POC Glucose (70-99) mg/dl Calcium 9.2 (8.6-10.3) mg/dl Magnesium 2.0 (1.7-2.4) mg/dl Total Bilirubin 0.5 (0.2-1.0) mg/dl AST 12 L (13-39) U/L ALT 8 (7-52) U/L Alkaline Phosphatase 35 (34-104) U/L Troponin I High Sens 2.6 (0-14) pg/ml C-Reactive Protein < 0.50 (0-0.5) mg/dl Total Protein 6.9 (6.0-8.3) gm/dl Albumin 4.2 (3.4-5.0) gm/dl Globulin 2.7 (2.5-4.0) gm/dl Albumin/Globulin Ratio 1.6 (0.9-2) TSH 1.296 (0.300-4.500) uIu/ml Urine Color Urine Appearance (Clear) Urine pH (4.5-7.5) Ur Specific [place] (1.000-1.030) Urine Protein (Negative) Urine Glucose (UA) (Negative) Urine Ketones (Negative) Urine Blood (Negative) Urine Nitrite (Negative) Urine Bilirubin (Negative) Urine Urobilinogen (Negative) Ur Leukocyte Esterase (Negative) Urine Test (Negative) Lyme Disease IgG Ab (Negative) Lyme Disease IgM Ab (Negative) SARS-CoV-2 (PCR) (Negative) Influenza Type A (PCR) (Neg) Influenza Type B (PCR) (Neg) RSV (RT-PCR) (Neg) 10/01/22 10/01/22 10/01/22 Range/Units 11:07 11:07 12:18 WBC (4.8-10.8) K/ul RBC (4.20-5.40) M/uL Hgb (12.0-16.0) g/dl Hct (37.0-47.0) % MCV (80.0-100.0) fL MCH (25.0-34.0) pg MCHC (32.0-36.0) g/dL RDW Std Deviation (36.4-46.3) fL RDW Coeff of Reyes (11.5-14.5) % Plt Count (130-400) K/uL MPV (9.4-12.4) fL Immature Gran % (Auto) % Neut % (Auto) % Lymph % (Auto) % [place] % (Auto) % Eos % (Auto) % Baso % (Auto) % Neut # (Auto) (1.40-6.50) K/uL Lymph # (Auto) (1.2-3.4) K/uL [place] # (Auto) (0.11-0.59) K/uL Eos # (Auto) (0-0.50) K/uL Baso # (Auto) (0-0.2) K/uL Immature Gran # (Auto) (0.01-0.20) K/uL ESR (0-20) mm/hr PT 11.1 (9.0-12.0) Seconds INR 1.0 (0.9-1.1) APTT 30.1 (21.0-31.0) Seconds PTT Ratio 1.1 D-Dimer (0-500) ug/L FEU Sodium (136-145) mmol/L Potassium (3.5-5.1) mmol/L Chloride (98-107) mmol/L Carbon Dioxide (21-32) mmol/L Anion Gap (3-11) BUN (6-23) mg/dl Creatinine (0.6-1.2) mg/dl Est Cr Clr Drug Dosing ml/min Est GFR ( Amer) ml/min Est GFR (Non-Af Amer) ml/min BUN/Creatinine Ratio (10-20) Glucose (70-99(Fasting)) mg/dl POC Glucose (70-99) mg/dl Calcium (8.6-10.3) mg/dl Magnesium (1.7-2.4) mg/dl Total Bilirubin (0.2-1.0) mg/dl AST (13-39) U/L ALT (7-52) U/L Alkaline Phosphatase (34-104) U/L Troponin I High Sens (0-14) pg/ml C-Reactive Protein (0-0.5) mg/dl Total Protein (6.0-8.3) gm/dl Albumin (3.4-5.0) gm/dl Globulin (2.5-4.0) gm/dl Albumin/Globulin Ratio (0.9-2) TSH (0.300-4.500) uIu/ml Urine Color Urine Appearance (Clear) Urine pH (4.5-7.5) Ur Specific [place] (1.000-1.030) Urine Protein (Negative) Urine Glucose (UA) (Negative) Urine Ketones (Negative) Urine Blood (Negative) Urine Nitrite (Negative) Urine Bilirubin (Negative) Urine Urobilinogen (Negative) Ur Leukocyte Esterase (Negative) Urine Test (Negative) Lyme Disease IgG Ab Negative (Negative) Lyme Disease IgM Ab Equivocal A (Negative) SARS-CoV-2 (PCR) NEGATIVE (Negative) Influenza Type A (PCR) Negative (Neg) Influenza Type B (PCR) Negative (Neg) RSV (RT-PCR) Negative (Neg) 10/01/22 10/01/22 10/01/22 Range/Units 16:04 16:04 16:05 WBC (4.8-10.8) K/ul RBC (4.20-5.40) M/uL Hgb (12.0-16.0) g/dl Hct (37.0-47.0) % MCV (80.0-100.0) fL MCH (25.0-34.0) pg MCHC (32.0-36.0) g/dL RDW Std Deviation (36.4-46.3) fL RDW Coeff of Reyes (11.5-14.5) % Plt Count (130-400) K/uL MPV (9.4-12.4) fL Immature Gran % (Auto) % Neut % (Auto) % Lymph % (Auto) % [place] % (Auto) % Eos % (Auto) % Baso % (Auto) % Neut # (Auto) (1.40-6.50) K/uL Lymph # (Auto) (1.2-3.4) K/uL [place] # (Auto) (0.11-0.59) K/uL Eos # (Auto) (0-0.50) K/uL Baso # (Auto) (0-0.2) K/uL Immature Gran # (Auto) (0.01-0.20) K/uL ESR < 1 (0-20) mm/hr PT (9.0-12.0) Seconds INR (0.9-1.1) APTT (21.0-31.0) Seconds PTT Ratio D-Dimer 630 H* (0-500) ug/L FEU Sodium (136-145) mmol/L Potassium (3.5-5.1) mmol/L Chloride (98-107) mmol/L Carbon Dioxide (21-32) mmol/L Anion Gap (3-11) BUN (6-23) mg/dl Creatinine (0.6-1.2) mg/dl Est Cr Clr Drug Dosing ml/min Est GFR ( Amer) ml/min Est GFR (Non-Af Amer) ml/min BUN/Creatinine Ratio (10-20) Glucose (70-99(Fasting)) mg/dl POC Glucose (70-99) mg/dl Calcium (8.6-10.3) mg/dl Magnesium (1.7-2.4) mg/dl Total Bilirubin (0.2-1.0) mg/dl AST (13-39) U/L ALT (7-52) U/L Alkaline Phosphatase (34-104) U/L Troponin I High Sens 4.9 (0-14) pg/ml C-Reactive Protein (0-0.5) mg/dl Total Protein (6.0-8.3) gm/dl Albumin (3.4-5.0) gm/dl Globulin (2.5-4.0) gm/dl Albumin/Globulin Ratio (0.9-2) TSH (0.300-4.500) uIu/ml Urine Color Urine Appearance (Clear) Urine pH (4.5-7.5) Ur Specific [place] (1.000-1.030) Urine Protein (Negative) Urine Glucose (UA) (Negative) Urine Ketones (Negative) Urine Blood (Negative) Urine Nitrite (Negative) Urine Bilirubin (Negative) Urine Urobilinogen (Negative) Ur Leukocyte Esterase (Negative) Urine Test (Negative) Lyme Disease IgG Ab (Negative) Lyme Disease IgM Ab (Negative) SARS-CoV-2 (PCR) (Negative) Influenza Type A (PCR) (Neg) Influenza Type B (PCR) (Neg) RSV (RT-PCR) (Neg) Administered Medications Discontinued Medications Al Hydrox/Mg Hydrox/Simethicone (Aluminum/Magnesium Susp 30 Ml Udc) 15 ml PO NOW STA Stop: 10/01/22 14:11 Last Admin: 10/01/22 14:23 Dose: 15 ml Documented By: CHONG Sodium Chloride (Nss 1000ml) 1,000 mls @ 999 mls/hr IV .Q1H1M SHERICE Stop: 10/01/22 12:45 Last Infusion: 10/01/22 15:08 Dose: 0 mls/hr Documented By: Admin: 10/01/22 12:13 Dose: 999 mls/hr Documented By: CHONG Sodium Chloride (Nss 1000ml) 1,000 mls @ 999 mls/hr IV .Q1H1M ONE Stop: 10/01/22 12:35 Last Infusion: 10/01/22 15:08 Dose: 0 mls/hr Documented By: Admin: 10/01/22 12:13 Dose: 999 mls/hr Documented By: CHONG Famotidine (Pepcid 20mg Iv Push) 20 mg in 5 mls @ 2.5 mls/min IV NOW STA Stop: 10/01/22 14:11 Last Admin: 10/01/22 14:23 Dose: 2.5 mls/min Documented By: CHONG Sodium Chloride (Nss 1000ml) 1,000 mls @ 999 mls/hr IV .Q1H1M ONE Stop: 10/01/22 15:58 Last Infusion: 10/01/22 16:20 Dose: 0 mls/hr Documented By: Admin: 10/01/22 15:15 Dose: 999 mls/hr Documented By: SANIYA Ioversol (Optiray 320 125ml) 119 ml IV ONCE ONE Stop: 10/01/22 18:02 Last Admin: 10/01/22 18:01 Dose: 119 ml Documented By: DARIEL Ketorolac Tromethamine (Ketorolac Tromethamine 15 Mg/Ml Vial) 10 mg IV NOW ONE Stop: 10/01/22 11:36 Last Admin: 10/01/22 12:15 Dose: 10 mg Documented By: CHONG Ondansetron HCl (Ondansetron Inj 2 Mg/Ml 2 Ml Vial) 4 mg IV NOW STA Stop: 10/01/22 11:36 Last Admin: 10/01/22 12:14 Dose: 4 mg Documented By: CHONG Ondansetron HCl (Ondansetron Inj 2 Mg/Ml 2 Ml Vial) 4 mg IV NOW STA Stop: 10/01/22 14:59 Last Admin: 10/01/22 15:13 Dose: 4 mg Documented By: SANIYA Imaging Data Radiologist's Impression: Head CT 10/01/22 11:36 CT OF THE HEAD WITHOUT CONTRAST CLINICAL HISTORY: Syncope. COMPARISON STUDY: Head CT March 09, 2022. CT DOSE: 547.75 mGy.cm TECHNIQUE: Helical axial images of the head were obtained without IV contrast. Automated exposure control was utilized for the study. A dose lowering technique was utilized adhering to the principles of ALARA. FINDINGS: No acute intracranial hemorrhage, midline shift or mass effect is present. The ventricular system is unremarkable. The basal cisterns are patent. No extra-axial collections are present. There are no findings to suggest acute dural sinus thrombosis or acute territorial infarct. No significant calvarial abnormalities are present. Visualized portions of the sinuses and mastoid air cells are clear. IMPRESSION: No acute intracranial findings. ACT 112: Negative or not required by law. Electronically signed by: Chay Urena M.D. 10/01/2022 12:02 PM Chest X-Ray 10/01/22 14:10 SINGLE VIEW CHEST CLINICAL HISTORY: Atypical chest pain. Burning chest discomfort. FINDINGS: An AP, portable, upright chest radiograph is compared to study dated 05/28/2021 and correlated with chest CT dated 03/09/2022. The cardiomediastinal silhouette is unremarkable. The lungs and pleural spaces are clear. No pneumothorax is seen. The bony thorax is grossly intact. IMPRESSION: No active disease in the chest. ACT 112: Negative or not required by law. Electronically signed by: Yobany Sal M.D. 10/01/2022 2:55 PM Discharge Plan Visit Data Chief Complaint: Syncope Stated Complaint: SYNCOPE ED Provider: Yosvany Chakraborty Discharge Problem: Syncope, Generalized weakness, Positive Lyme disease serology Forms Stand Alone Forms: [facility] Prescriptions Prescriptions: No Action valacyclovir [Valtrex] 1 gram tablet 1,000 mg PO BID PRN (Reason: cold sore) 3 Days Qty: 30 3RF clindamycin-benzoyl peroxide 1-5 % gel 1 applic topical BID Qty: 50 3RF multivitamin Tablet 1 tab PO DAILY Referrals Referrals: Sandhya Hunter DO [Primary Care Provider] -
[2022-10-01] MEDS ORDERED: KETOROLAC TROMETHAMINE 15 MG/ML VIAL IV ONE (11:35)
[2022-10-01] MEDS ORDERED: SODIUM CHLORIDE 0.9% 1000ML 1,000 ML IV ONE ×2 (11:35→14:58)
[2022-10-01] MEDS ORDERED: ONDANSETRON INJ 2 MG/ML 2 ML VIAL IV STA ×2 (11:35→14:58)
[2022-10-01] MEDS ORDERED: SODIUM CHLORIDE 0.9% 1000ML 1,000 ML IV SCH (11:45)
--- NOTE | 2022-10-01 12:04 | CT Scan Report ---
CT OF THE HEAD WITHOUT CONTRAST CLINICAL HISTORY: Syncope. COMPARISON STUDY: Head CT March 09, 2022. CT DOSE: 547.75 mGy.cm TECHNIQUE: Helical axial images of the head were obtained without IV contrast. Automated exposure con trol was utilized for the study. A dose lowering technique was utilized adhering to the principles o f ALARA. FINDINGS: No acute intracranial hemorrhage, midline shift or mass effect is present. The ventricular system is unremarkable. The basal cisterns are patent. No extra-axial collections are present. There are no findings to suggest acute dural sinus thrombosis or acute territorial infarct. No significant calvarial abnormalities are present. Visualized portions of the sinuses and mastoid air cells are bianca ar. IMPRESSION: No acute intracranial findings. ACT 112: Negative or not required by law. Electronically signed by: Chay Urena M.D. 10/01/2022 12:02 PM
[2022-10-01 12:09] LABS: Basophils # (auto) 0.03 K/uL (0-0.2); Basophils % (auto) 0.5 %; Eosinophils # (auto) 0.07 K/uL (0-0.50); Eosinophils % (auto) 1.2 %; Hematocrit (blood only) 38.4 % (37.0-47.0); Hemoglobin 13.5 g/dl (12.0-16.0); Immature Granulocytes # (auto) 0.02 K/uL (0.01-0.20); Immature Granulocytes % (auto) 0.3 %; Lymphocytes # (auto) 1.43 K/uL (1.2-3.4); Lymphocytes % (auto) 24.3 %; Mean Corpuscular Hemoglobin 30.8 pg (25.0-34.0); Mean Corpuscular Hgb Conc 35.2 g/dL (32.0-36.0); Mean Corpuscular Volume 87.5 fL (80.0-100.0); Mean Platelet Volume 9.7 fL (9.4-12.4); Monocytes # (auto) 0.36 K/uL (0.11-0.59); Monocytes % (auto) 6.1 %; Neutrophils # (auto) 3.98 K/uL (1.40-6.50); Neutrophils % (auto) 67.6 %; Platelet Count 181 K/uL (130-400); RDW Coefficient of Variation 12.4 % (11.5-14.5); RDW Standard Deviation 39.7 fL (36.4-46.3); Red Blood Count 4.39 M/uL (4.20-5.40); White Blood Count 5.89 K/ul (4.8-10.8)
[2022-10-01 12:12] LABS: Appearance Urine Clear (Clear); Bilirubin Urine Negative (Negative); Blood Urine Negative (Negative); Color Urine Yellow; Glucose Urine UA Negative (Negative); Ketones Urine Negative (Negative); Leukocyte Esterase Urine Negative (Negative); Nitrite Urine Negative (Negative); Protein Urine Negative (Negative); Specific Gravity Urine 1.016 (1.000-1.030); Urobilinogen Urine Negative (Negative)
[2022-10-01 12:25] LABS: Alanine Aminotransferase 8 U/L (7-52); Albumin Globulin Ratio 1.6 (0.9-2); Albumin Level 4.2 gm/dl (3.4-5.0); Alkaline Phosphatase 35 U/L (34-104); Anion Gap 7 (3-11); Aspartate Aminotransferase 12 U/L (13-39); BUN Creatinine Ratio 17.6 (10-20); Bilirubin,Total 0.5 mg/dl (0.2-1.0); Blood Urea Nitrogen 12 mg/dl (6-23); Calcium 9.2 mg/dl (8.6-10.3); Carbon Dioxide 21 mmol/L (21-32); Chloride 107 mmol/L (98-107); Creatinine Clr Calc Pharmacy 107.8 ml/min; Est GFR (African American) 131.3 ml/min; Est GFR (Non-African American) 113.3 ml/min; Globulin 2.7 gm/dl (2.5-4.0); Glucose 108 mg/dl (70-99(Fasting)); Potassium 3.7 mmol/L (3.5-5.1); Sodium 135 mmol/L (136-145); Total Protein 6.9 gm/dl (6.0-8.3)
[2022-10-01 12:31] LABS: Troponin I High Sensitivity 2.6 pg/ml (0-14)
--- NOTE | 2022-10-01 12:33 | Electrocardiogram Report ---
Test Reason : Blood Pressure : / mmHG Vent. Rate : 086 BPM Atrial Rate : 086 BPM P-R Int : 136 ms QRS Dur : 082 ms QT Int : 340 ms P-R-T Axes : 065 010 027 degrees QTc Int : 406 ms Normal sinus rhythm Normal ECG When compared with ECG of 08-MAR-2022 23:58, No significant change was found Confirmed by Homar Contreras ([id number]) on 10/01/2022 12:33:00 PM Referred By: Confirmed By:Homar Contreras
[2022-10-01 13:10] LABS: Influenza A virus by PCR Negative (Neg); Influenza B virus by PCR Negative (Neg); RSV by PCR Negative (Neg); SARS CoV2 RNA(COVID-19) Ceph NEGATIVE (Negative)
[2022-10-01] MEDS ORDERED: FAMOTIDINE 20MG IV PUSH 20 MG/5 ML SYR IV STA (14:10)
[2022-10-01] MEDS ORDERED: ALUMINUM/MAGNESIUM SUSP 30 ML UDC PO STA (14:10)
--- NOTE | 2022-10-01 14:56 | XRay Report ---
SINGLE VIEW CHEST CLINICAL HISTORY: Atypical chest pain. Burning chest discomfort. FINDINGS: An AP, portable, upright chest radiograph is compared to study dated 05/28/2021 and correlat ed with chest CT dated 03/09/2022. The cardiomediastinal silhouette is unremarkable. The lungs and pl eural spaces are clear. No pneumothorax is seen. The bony thorax is grossly intact. IMPRESSION: No active disease in the chest. ACT 112: Negative or not required by law. Electronically signed by: Yobany Sal M.D. 10/01/2022 2:55 PM
--- NOTE | 2022-10-01 15:36 | Hospitalist Consultation ---
Date of Consultation October 01, 2022 History of Present Illness History of Present Illness At work, dizzy, tunnel vision, coulded vision when she lied down. Hit red button by door. Loss of consciousness for a few minutes. Works in [employer]. No better on lying down. No room spinning sensation. Large diarrhea bowel movement. Formed and then watery. Center - LMP due to cycle in 4 days. Previously on control for 2 months, stopped control TRISTAN Syl. LLQ pain for the last 2 days, getting worse. Constipation issues 2-3 days without a bowel movement. No melena,bright red blood in stool. Similar pains once a week - no associated with diarrhea. Never had colonoscopy previously. hot poker pressing, burning pinching sensation throughout her rib cage. Ovarian cysts - full feeling but doesn't get pains with this. Had something similar a long time ago - thinks that was due to anxiety but didn't loose consciousness. Allergies Allergy/AdvReac Type Severity Reaction Status Date / Time adhesive tape Allergy Mild Rash Verified 07/17/22 14:32 latex Allergy Mild Rash Verified 07/17/22 14:32 nitrofurantoin AdvReac Unknown Gastrointestinal Verified 07/17/22 14:32 Upset hydrocodone [From Vicodin] AdvReac GI upset Verified 07/17/22 14:32 Home Medications Medication Instructions Recorded Confirmed Type multivitamin 1 tab PO DAILY 11/23/20 10/01/22 History valacyclovir 1 gram tablet 1,000 mg PO BID PRN cold sore 3 04/23/22 10/01/22 Rx (Valtrex) days #30 tabs clindamycin 1 %-benzoyl peroxide 5 1 applic topical BID #50 grams 06/18/22 10/01/22 Rx % topical gel Patient History Medical History Acne Allergic rhinitis Anxiety Chronic sinusitis Female infertility Hirsutism Migraine headache Moderate cervical dysplasia Ovarian cyst Post-COVID chronic cough Premenstrual syndrome Renal lesion L, seen on abdominal CT in 2014 Secondary amenorrhea TMJ syndrome Vitamin D deficiency Surgical History History of appendectomy (10/12/12) History of breast augmentation (04/2010) History of laparoscopy (11/2017) History of oral surgery S/p breast implant removal S/P LEEP (09/2011) Family History Mother Adult celiac disease Endometriosis Non-Hodgkin lymphoma Anemia Sister Endometriosis Grandmother (Paternal) Diabetes Aunt Diabetes *Paternal Grandmother (Maternal) Anemia Hypertension Hypercholesteremia Denies family history of Ovarian cancer Prostate cancer Myocardial infarction Breast cancer Colorectal cancer Social History Smoking Status: Former smoker Second Hand Exposure: No; Do You Dip or Chew Tobacco: No; Hx Alcohol Use: Yes Hx Substance Use: No Preferred Language: Maldivian Communication Ability: Effective Visual Impairment: No Limitations Hearing Ability: Normal Bearing Maker Required: No Beliefs That Will Affect Care: None marital status: marital status details: Jerry Florez (33) [phone] Current Living Situation: Spouse Current Living Situation Comment: 2 dogs current occupational status: employed current occupation: HOME [employer] L[employer] @ [employer] Feels Safe at Home: Yes Dental Care, Regularly: Yes Physical Activity Frequency: 3-4 Times per Week Seatbelt Use: always Assistive Devices: None Results & Data Results & Data Vital Signs (Past 12 Hours) Vital Signs Temp Pulse Pulse Resp BP Pulse Ox O2 Del Method 10/01/22 15:23 86 16 98 Room Air 10/01/22 14:00 106 H 13 99 Room Air 10/01/22 14:00 109/68 10/01/22 13:30 84 15 100 Room Air 10/01/22 13:30 114/62 10/01/22 13:00 75 17 97 Room Air 10/01/22 12:44 96 Room Air 10/01/22 12:54 93 H 10/01/22 12:00 83 15 97 Room Air 10/01/22 11:30 92 H 13 97 Room Air 10/01/22 11:30 140/71 10/01/22 11:00 92 H 15 98 Room Air 10/01/22 11:00 141/86 H 10/01/22 11:17 Room Air 10/01/22 10:44 36.8 C 88 20 128/76 99 Room Air PG Care Time/CCT Total # of Minutes Spent Total Time Spent with Patient: Total time spent is greater than 50% in coordination of care (as documented) at patient's floor/unit and/or counseling patient: Coding Diagnoses
[2022-10-01 16:05] LABS: Pregnancy Test, Urine Negative (Negative)
[2022-10-01 16:08] LABS: Partial Thromboplastin Ratio 1.1; Partial Thromboplastin Time 30.1 Seconds (21.0-31.0); Prothrombin Time 11.1 Seconds (9.0-12.0)
[2022-10-01 16:17] LABS: C Reactive Protein < 0.50 mg/dl (0-0.5)
[2022-10-01 16:20] LABS: Lyme Ab IgG w/WB Rflx Negative (Negative)
[2022-10-01 16:24] LABS: Lyme Ab IgM w/WB Rflx Equivocal (Negative)
[2022-10-01 17:07] LABS: D Dimer 630 ug/L FEU (0-500)
[2022-10-01] MEDS ORDERED: OPTIRAY 320 125ml IV ONE (18:01)
--- NOTE | 2022-10-01 18:01 | History & Physical Report ---
Date of Service October 01, 2022 Assessment & Plan (1) Bilateral leg weakness: Plan: Profound weakness - requiring assistance 1-2 to walk. Associated b/l T1 distribution numbness and left sided pain chest pain. Also having abdominal pain but this is ongoing. This all occurred after the syncopal episode therefore unclear if related or due to the fall. Family history of MS. Known cervical spinal compression - from 611 report although no images available to review. Having neck, thoracic and lower back pain. MRI brain, cervical, thoracic, lumbar spine with and without contrast - will have one of our radiologist read in the morning rather than [facility] overnight as not urgent as low suspicion of acute spinal cord compression given good objective exam Will get lumbar puncture to mainly assess for GBS but will also send for infective and MS etiology. Consult neurology (2) Syncope: Plan: Her syncope sounds vasovagal except that she did not improve when she lied down and hypertensive when amblance arrived Doubtful any significant valvular disease but she does have a mild systolic ejection murmur therefore will get TTE. ?autonomic dysfunction due to GBS as above. (3) Systolic murmur: Plan: TTE (4) Positive Lyme disease serology: Plan: Given lack of alternative explanation at time of admission will start on doxycycline to cover for this pending full western blot Consider repeating Lyme Ab testing in 2-4 weeks (5) Chest pain: Plan: D-dimer elevated CT chest angiogram negative for pulmonary emboli ?neuropathic pain as above (6) Abdominal pain: Plan: This is more longstanding. Consider colonoscopy as outpatient Plan VTE Prophylaxis - low risk Diet - regular Disposition - admit to med/tele Admission and Anticipated Discharge Date Admission Date: October 01, 2022 History of Present Illness Chief Complaint: Syncope, bilateral lower limb weakness Primary Care Provider: DO Danica Nelson Gautam is a 37 year old female [facility] [employer] who presents to the ER after a syncopal episode at work. She reports feeling well prior to this when she went to work this morning. However at work shortly before her syncopal episode she felt dizzy with tunnel/clouded vision. She tried to lie down but this did not help, therefore she tried to get up to go outside and felt worse. She pressed the emergency buzzer and the next thing she remembers is being surrounded by lots of people int he office. She denies any room spinning sensation. She came to the emergency room via ambulance. EMS reported glucose 107 and initial blood pressure 160/92. In the emergency room she had a large loose stool bowel movement, formed initially then watery but no gastrointestinal problem since the fall. After intravenous fluids she has also felt increased weakness and sensation of tingling in 4/5th digits but also swelling in both hands. She is also noting left sided chest pain, not reproducible on exam. Notes it feels like a hot poker stick pressing in her lung or a burning/pinching sensation throughout her ribs cage just on the left side. No worse on palpation. Never had this previously and new since her fall. Also since the fall she has noticed significant weakness in her legs. She is able to move them in bed but when trying to stand up she is c urrently a 2 assist at bedside. This is all new and she has never had this previously. She notes having a cousin with multiple sclerosis but never had any problems suggestive of MS previously and only eye problem today was related to tunnel vision before her syncopal episode. She has a longstanding history of intermittent lower abdominal pains which she is also having now (usually has pains once a week on average). The pain she has here currently is her usual pain but maybe worse than usual. This pain has been there for the last 2 days. Previously put down to ovarian cysts. Previous CTs were unremarkable. She also has problems with constipation however she has never had a colonoscopy. No melena or bright red blood in stool. She is due her next menstrual period in about 4 days. Previously on control for ovarian cysts Allergies Allergy/AdvReac Type Severity Reaction Status Date / Time adhesive tape Allergy Mild Rash Verified 07/17/22 14:32 latex Allergy Mild Rash Verified 07/17/22 14:32 nitrofurantoin AdvReac Unknown Gastrointestinal Verified 07/17/22 14:32 Upset hydrocodone [From Vicodin] AdvReac GI upset Verified 07/17/22 14:32 Home Medications Medication Instructions Recorded Confirmed Type multivitamin 1 tab PO DAILY 11/23/20 10/01/22 History valacyclovir 1 gram tablet 1,000 mg PO BID PRN cold sore 3 04/23/22 10/01/22 Rx (Valtrex) days #30 tabs clindamycin 1 %-benzoyl peroxide 5 1 applic topical BID #50 grams 06/18/22 10/01/22 Rx % topical gel Past Med/Surg History Medical History Acne Allergic rhinitis Anxiety Chronic sinusitis Female infertility Hirsutism Migraine headache Moderate cervical dysplasia Ovarian cyst Post-COVID chronic cough Premenstrual syndrome Renal lesion L, seen on abdominal CT in 2014 Secondary amenorrhea TMJ syndrome Vitamin D deficiency Surgical History History of appendectomy (10/12/12) History of breast augmentation (04/2010) History of laparoscopy (11/2017) History of oral surgery S/p breast implant removal S/P LEEP (09/2011) Family History Mother Adult celiac disease Endometriosis Non-Hodgkin lymphoma Anemia Sister Endometriosis Grandmother (Paternal) Diabetes Aunt Diabetes *Paternal Grandmother (Maternal) Anemia Hypertension Hypercholesteremia Denies family history of Ovarian cancer Prostate cancer Myocardial infarction Breast cancer Colorectal cancer Social History Smoking Status: Never smoker Second Hand Exposure: No; Do You Dip or Chew Tobacco: No; Hx Alcohol Use: Yes Hx Substance Use: No Preferred Language: [place] Islander Communication Ability: Effective Visual Impairment: No Limitations Hearing Ability: Normal Business Services Vice President Required: No Beliefs That Will Affect Care: None marital status: marital status details: Jerry Florez (33) [phone] Current Living Situation: Spouse and Family Current Living Situation Comment: lives at home with husbnad and daughter current occupational status: employed current occupation: [employer] @ [employer] Feels Safe at Home: Yes Safety Concerns: Feels Safe At This Time Dental Care, Regularly: Yes Physical Activity Frequency: 3-4 Times per Week Seatbelt Use: always Assistive Devices: Glasses Review of Systems Review of Systems: All systems reviewed & are unremarkable except as noted in HPI & below Physical Exam Constitutional: WD/WN, vitals as above Eyes: PERRL, conjunctivae normal, anicteric sclerae ENMT: external ear and nose normal, oropharynx normal Mouth: oral mucous membranes not dry Respiratory: normal respiratory effort, lungs clear to auscultation Cardiovascular: Rate/Rhythm: regular rate and regular rhythm Heart Sounds: + murmur (VESTA LUSB 2/6) Gastrointestinal (Abdomen): Inspection/Auscultation: abdomen normal to inspection; abdomen not distended Percussion/Palpation: + abdomen tender (suprapubic and LLQ) and abdomen soft; no guarding and abdomen not rigid Musculoskeletal: no cyanosis or clubbing, extremities motor strength 5/5 Skin: no rashes, warm and dry Neurologic: moves all extremities and awake; no focal motor deficits (5/5 power b/l UE/LE on objective exam until she stands up) and not confused Speech / Cognition: normal speech Motor/Sensory: no tremor and no pronator drift Cranial Nerves: PERRL, EOM intact bilaterally, normal facial strength, tongue midline, able to rotate head bilaterally, able to elevate shoulders bilaterally, no nystagmus and symmetric palate elevation Gait: + gait assisted (2 assist to stand at bedside) Psychiatric: A+Ox3, euthymic affect Genitourinary: no CVA tenderness Results & Data Results & Data Vital Signs (Past 12 Hours) Vital Signs Temp Pulse Pulse Resp BP Pulse Ox O2 Del Method 10/01/22 16:22 81 16 98 Room Air 10/01/22 15:23 86 16 98 Room Air 10/01/22 14:00 106 H 13 99 Room Air 10/01/22 14:00 109/68 10/01/22 13:30 84 15 100 Room Air 10/01/22 13:30 114/62 10/01/22 13:00 75 17 97 Room Air 10/01/22 12:44 96 Room Air 10/01/22 12:54 93 H 10/01/22 12:00 83 15 97 Room Air 10/01/22 11:30 92 H 13 97 Room Air 10/01/22 11:30 140/71 10/01/22 11:00 92 H 15 98 Room Air 10/01/22 11:00 141/86 H 10/01/22 11:17 Room Air 10/01/22 10:44 36.8 C 88 20 128/76 99 Room Air Laboratory Results Abnormal lab results 10/01/22 10/01/22 10/01/22 Range/Units 11:04 11:07 11:07 D-Dimer (0-500) ug/L FEU Sodium 135 L (136-145) mmol/L Glucose 108 H (70-99(Fasting)) mg/dl POC Glucose 112 H (70-99) mg/dl AST 12 L (13-39) U/L Lyme Disease IgM Ab Equivocal A (Negative) 10/01/22 Range/Units 16:04 D-Dimer 630 H* (0-500) ug/L FEU Sodium (136-145) mmol/L Glucose (70-99(Fasting)) mg/dl POC Glucose (70-99) mg/dl AST (13-39) U/L Lyme Disease IgM Ab (Negative) Diagnostic Findings SINGLE VIEW CHEST CLINICAL HISTORY: Atypical chest pain. Burning chest discomfort. FINDINGS: An AP, portable, upright chest radiograph is compared to study dated 05/28/2021 and correlated with chest CT dated 03/09/2022. The cardiomediastinal silhouette is unremarkable. The lungs and pleural spaces are clear. No pneumothorax is seen. The bony thorax is grossly intact. IMPRESSION: No active disease in the chest. CT OF THE HEAD WITHOUT CONTRAST CLINICAL HISTORY: Syncope. COMPARISON STUDY: Head CT March 09, 2022. CT DOSE: 547.75 mGy.cm TECHNIQUE: Helical axial images of the head were obtained without IV contrast. Automated exposure control was utilized for the study. A dose lowering technique was utilized adhering to the principles of ALARA. FINDINGS: No acute intracranial hemorrhage, midline shift or mass effect is present. The ventricular system is unremarkable. The basal cisterns are patent. No extra-axial collections are present. There are no findings to suggest acute dural sinus thrombosis or acute territorial infarct. No significant calvarial abnormalities are present. Visualized portions of the sinuses and mastoid air cells are clear. IMPRESSION: No acute intracranial findings. Medications Administered ER Medications Given: NSS 1L bolus Toradol 10mg IV NSS 1L bolus Ondansetron 4mg IV Maalox 15ml Famotidine 20mg IV NSS 1L bolus Ondansetron 4mg IV ECG Rate (beats per minute): 86 Rhythm: normal sinus Findings: no acute ischemic change Comparison ECG Date: from (March 08, 2022) Change: no significant change Code Status & VTE Plan Code Status Full VTE Prophylaxis Plan VTE Prophylaxis will be ordered: No PG Care Time/CCT Total # of Minutes Spent Total Time Spent with Patient: Total time spent is greater than 50% in coordination of care (as documented) at patient's floor/unit and/or counseling patient: Coding Level of Care Code 05881 INT INP/OBS CARE 375MIN Diagnoses Bilateral leg weakness R29.898 Syncope R55 Syncope type: unspecified Systolic murmur R01.1 Positive Lyme disease serology R76.8 Chest pain R07.9 Abdominal pain R10.9 Abdominal location: unspecified location (2) Syncope Syncope type: unspecified Qualified Code(s): R55 - Syncope and collapse (6) Abdominal pain Abdominal location: unspecified location Qualified Code(s): R10.9 - Unspecified abdominal pain
--- NOTE | 2022-10-01 19:03 | CT Scan Report ---
CT angio chest PE protocol CT DOSE: 524.87 mGy.cm HISTORY: 37 years-old Female with PE. Acute syncope with shortness of breath TECHNIQUE: Multiple CTA images of the chest were obtained after the intravenous administration of 119 ml Optiray. Coronal and sagittal MIPS were obtained from the axial data set and were submitted for review. All measurements were obtained according to NASCET criteria. A dose lowering technique was u tilized adhering to the principles of ALARA. COMPARISON: Chest CT 03/09/2022 FINDINGS: CTA: There is adequate opacification of the pulmonary arteries to the level of the subsegmental branches w ithout convincing evidence of acute pulmonary embolism. Normal thoracic aorta. Heart size is normal. CT CHEST: No dominant thyroid nodule is seen. Mild residual thymic tissue in the anterior mediastinum. No patho logically adenopathy by CT size criteria. Subsegmental dependent bibasilar predominant atelectasis. T here is no pneumothorax, pleural effusion or focal airspace consolidation. The imaged upper abdominal structures are normal. The osseous structures appear intact. IMPRESSION: Unremarkable CTA of the chest. ACT 112: Negative or not required by law. The above report was generated using voice recognition software. It may contain grammatical, syntax o r spelling errors. Electronically signed by: Chucho Flor M.D. 10/01/2022 7:02 PM
--- NOTE | 2022-10-01 22:39 | Procedure Note ---
Procedure Note Date of Service October 01, 2022 Note Pt in need of lumbar puncture for workup for possible Guillain-Jackson. Vital signs have been stable. Not on any anticoagulation meds and platelet count and INR normal. latex allergy. spoke with patient about need for procedure as well as risks including bleeding, infection and post procedure headache. She agreed to proceed. Sterile prep with duraprep and draped. Local infiltration with 2ml of 1% lidocaine. 20g needle used to locate CSF at L3-4, CSF pressure measured, 4 tubes collected to be sent to lab. Patient tolerated well. Coding
[2022-10-01] MEDS: DOXYCYCLINE HYCLATE 100 MG in DEXTROSE 5% 100 ML IV SCH (22:45)
[2022-10-01 23:04] LABS: Appearance CSF Clear; CSF Count Tube # 3; CSF Xanthrochromic No xanthochromia; Color CSF Colorless
[2022-10-01 23:07] LABS: Total Protein CSF 45.3 mg/dl (15-45)
[2022-10-02 00:15] LABS: Cryptococcus neoformans/ga PCR Not Detected (NotDetected); Cytomegalovirus PCR Not Detected (NotDetected); Enterovirus PCR Not Detected (NotDetected); Escherichia coli K1 PCR Not Detected (NotDetected); Haemophilius influenzae PCR Not Detected (NotDetected); Herpes Simplex Virus 1 PCR Not Detected (NotDetected); Herpes Simplex Virus 2 PCR Not Detected (NotDetected); Human Herpes Virus 6 PCR Not Detected (NotDetected); Human Parechovirus PCR Not Detected (NotDetected); Listeria monocytogenes PCR Not Detected (NotDetected); Neisseria meningitidis PCR Not Detected (NotDetected); Streptococcus agalactiae PCR Not Detected (NotDetected); Streptococcus pneumoniae PCR Not Detected (NotDetected); Varicella Zoster Virus PCR Not Detected (NotDetected)
[2022-10-02] MEDS ORDERED: LORazepam 2 MG/1 ML VIAL IV PRN (00:57)
[2022-10-02] MEDS ORDERED: GADOBUTROL 65ML VIAL IV ONE (03:10)
[2022-10-02] MEDS: ACETAMINOPHEN 325 MG TAB PO PRN ×2 (05:08→11:36)
[2022-10-02 07:16] LABS: Basophils # (auto) 0.03 K/uL (0-0.2); Basophils % (auto) 0.5 %; Eosinophils # (auto) 0.08 K/uL (0-0.50); Eosinophils % (auto) 1.2 %; Hematocrit (blood only) 36.3 % (37.0-47.0); Hemoglobin 12.5 g/dl (12.0-16.0); Immature Granulocytes # (auto) 0.03 K/uL (0.01-0.20); Immature Granulocytes % (auto) 0.5 %; Lymphocytes # (auto) 1.86 K/uL (1.2-3.4); Lymphocytes % (auto) 28.7 %; Mean Corpuscular Hemoglobin 30.2 pg (25.0-34.0); Mean Corpuscular Hgb Conc 34.4 g/dL (32.0-36.0); Mean Corpuscular Volume 87.7 fL (80.0-100.0); Mean Platelet Volume 9.5 fL (9.4-12.4); Monocytes # (auto) 0.44 K/uL (0.11-0.59); Monocytes % (auto) 6.8 %; Neutrophils # (auto) 4.03 K/uL (1.40-6.50); Neutrophils % (auto) 62.3 %; Platelet Count 176 K/uL (130-400); RDW Coefficient of Variation 12.4 % (11.5-14.5); RDW Standard Deviation 39.6 fL (36.4-46.3); Red Blood Count 4.14 M/uL (4.20-5.40); White Blood Count 6.47 K/ul (4.8-10.8)
--- NOTE | 2022-10-02 07:27 | Magnetic Resonance Report ---
MRI OF THE THORACIC SPINE WITH AND WITHOUT CONTRAST CLINICAL HISTORY: Left sided paresthesia, B/l LE weakness. COMPARISON: Thoracic spine radiographs August 27, 2008. TECHNIQUE: Utilizing a 1.5 Gayla magnet and dedicated coil, multiplanar, multiecho imaging of the th oracic spine was performed before and after the intravenous administration of 6.5 cc. FINDINGS: Alignment of the thoracic spine is anatomic. Vertebral body heights are maintained. There i s no thoracic spine fracture. No suspicious marrow replacement is present. Disc spaces are preserved. There are no disc herniations. The central canal and neural foramen within the thoracic spine are pa tent. Thoracic cord signal and caliber are normal. There is no abnormal enhancement within the thorac ic canal. Paravertebral soft tissues are unremarkable. IMPRESSION: 1. Unremarkable MRI of the thoracic spine. Normal thoracic cord signal and caliber. 2. Patent central canal and neural foramen. 3. No disc herniations. ACT 112: Negative or not required by law. Electronically signed by: Chay Uerna M.D. 10/02/2022 7:24 AM
[2022-10-02 07:31] LABS: Albumin Globulin Ratio 1.6 (0.9-2); Albumin Level 3.7 gm/dl (3.4-5.0); BUN Creatinine Ratio 11.3 (10-20); Bilirubin,Total 0.6 mg/dl (0.2-1.0); Calcium 8.7 mg/dl (8.6-10.3); Creatinine Clr Calc Pharmacy 118.2 ml/min; Est GFR (African American) 135.4 ml/min; Est GFR (Non-African American) 116.8 ml/min; Globulin 2.3 gm/dl (2.5-4.0); Potassium 3.7 mmol/L (3.5-5.1)
--- NOTE | 2022-10-02 07:33 | Magnetic Resonance Report ---
MRI OF THE LUMBAR SPINE WITH AND WITHOUT CONTRAST CLINICAL HISTORY: left sided paresthesia, B/l LE weakness COMPARISON STUDY: Lumbar spine MRI November 01, 2015. TECHNIQUE: Utilizing a 1.5 Gayla magnet and dedicated coil, multiplanar, multiecho imaging of the augusto mbar spine was performed before and after uneventful IV administration of 6.5 mL of Gadavist. FINDINGS: For purposes of numbering on this exam, the L5-S1 disc space is assigned to axial image 23 of 25. Ali gnment of the lumbar spine is anatomic. A few small Schmorl's nodes are again noted. There is no lumb ar spine fracture. There is no suspicious marrow replacement. Conus terminates at the lower L1 level. There is no intracanalicular mass, fluid collection or abnormal enhancement. Paravertebral soft tiss ues are unremarkable. L1-2: The central canal and neural foramen are patent. L2-3: The central canal and neural foramen are patent. L3-4: The central canal and neural foramen are patent. L4-5: The central canal and neural foramen are patent. L5-S1: A small central disc protrusion is present. There is no significant central canal neural yen inal stenosis. IMPRESSION: 1. No central canal or neural foraminal stenosis. Small central disc protrusion at L5-S1. 2. Otherwise, unremarkable MRI of the lumbar spine. ACT 112: Negative or not required by law. Electronically signed by: Chay Urena M.D. 10/02/2022 7:30 AM
--- NOTE | 2022-10-02 07:36 | Communication Note ---
Date of Service: October 02, 2022 Assisted lumbar puncture. Opening pressure measured 20.5cm H20. 4 bottles CSF collected. Total protein 45.3 neither confirms or completely rules out GBS but not enough with her current symptoms to warrant IVIG. Will defer to neurology tomorrow and get MRIs to assess for alternative spinal etiology. She is having cervical, thoracic and lumbar pain - therefore all three will be performed in addition to brain MRI with multiple sclerosis protocol.
--- NOTE | 2022-10-02 08:20 | Magnetic Resonance Report ---
MR brain MS wo/w con HISTORY: 37 years-old Female left sided paresthesia, B/l LE weakness acute weakness with recent sync ope COMPARISON: Head CT of same day TECHNIQUE: Multiplanar multisequence MRI of the brain was obtained both with and without the use of I V contrast. FINDINGS: No restricted diffusion. Midline structures appear unremarkable. No acute intracranial hemorrhage, mi dline shift, abnormal extra-axial collection, hydrocephalus or intracranial mass. No pathologic martínez ing artifact. Normal volume and signal of the brain parenchyma. No abnormal enhancement. Cerebral venous sinuses and major arterial flow voids appear patent. The skull, orbits and soft tissu es are unremarkable. Mastoid air cells and paranasal sinuses are clear. IMPRESSION: 1. Unremarkable MRI of the brain. 2. No abnormal enhancement. ACT 112: Negative or not required by law. The above report was generated using voice recognition software. It may contain grammatical, syntax o r spelling errors. Electronically signed by: Chucho Flor M.D. 10/02/2022 8:18 AM
[2022-10-02] MEDS: DOXYCYCLINE HYCLATE 100 MG in DEXTROSE 5% 100 ML IV SCH (08:39)
--- NOTE | 2022-10-02 08:57 | Magnetic Resonance Report ---
MR cervical spine wo/w con HISTORY: 37 years-old Female left sided paresthesia, B/l LE weakness acute syncope with upper extrem ity paresthesias. COMPARISON: Brain MRI of same day, CT cervical spine 03/09/2022, MRI cervical spine 10/12/2012. TECHNIQUE: Multiplanar multisequence MRI of the cervical spine was obtained both with and without the use of IV contrast. FINDINGS: No abnormal enhancement. Study is limited secondary to no sagittal STIR images obtained. Normal signa l within the brainstem, cervical and imaged thoracic spinal cord. No abnormal enhancement is identifi ed. C2-C3: No central canal or neural foraminal stenosis. C3-C4: No central canal or neural foraminal stenosis. C4-C5: Mild intervertebral disc space narrowing with uncovertebral hypertrophy and central disc osteo phyte complex measuring 9 mm transversely, new from prior. Flattening of the ventral thecal sac witho ut significant central canal stenosis. Mild bilateral neural foraminal narrowing. C5-C6: Mild intervertebral disc space narrowing with uncovertebral hypertrophy and small central disc osteophyte complex measuring 9 mm transversely, new from prior. Flattening of the ventral thecal sac without significant central canal stenosis. Mild bilateral neural foraminal narrowing. C6-C7: No central canal or neural foraminal stenosis. C7-T1: No central canal or neural foraminal stenosis. IMPRESSION: 1. Normal signal of the cervical spinal cord. 2. No abnormal enhancement. 3. Mild discogenic degeneration has mildly progressed compared to the 2013 study. 4. No high-grade central canal or neural foraminal narrowing. ACT 112: Negative or not required by law. The above report was generated using voice recognition software. It may contain grammatical, syntax o r spelling errors. Dictated: 10/02/2022 8:18 AM Transcribed: 10/02/2022 8:45 AM Eduardo [id number] Electronically signed by: Chucho Flor M.D. 10/02/2022 8:56 AM
[2022-10-02] MEDS ORDERED: CYANOCOBALAMIN 1000 MCG/ML VIAL IM SCH (11:00)
--- NOTE | 2022-10-02 11:19 | Neurology Consultation ---
Date of Consultation October 02, 2022 Assessment & Plan (1) Functional neurological symptom disorder with mixed symptoms: Patient presents with functional lower extremity weakness after a syncopal like episode. With her history of pelvic/abd pain, syncope and neurologic weakness without structural abnormality she meets criteria for somatic symptom disorder. Notably she has low B12 but neuropathy secondary to B12 deficiency is not acute. Would still recommend supplementation. Agree with PT for reassurance and gait training. Recommend neuropsych referral. Given resource of neurosymptoms.org which can be helpful to futher explain the basis of her functional weakness. Telehealth Consultation Telehealth Information Telehealth Information: I performed this visit using a real-time telehealth connection between my location and the patients location ([facility]). After connecting through interactive tele-video, patient was identified by name and date of and/or wristband check.Patient (or authorized healthcare applications sales representative) was informed that this was a telemedicine visit and it was being conducted confidentially over secure lines. My office door was closed and no one else was present in the room with me.Patient (or authorized healthcare applications sales representative) provided consent to proceed with the visit, expressed an understanding of privacy and security of the telemedicine visit, and gave permission to have a hospital applications sales representative in the room in order to assist with the visit and to conduct portions of the visit, as needed. I informed the patient (or authorized healthcare applications sales representative) that I reviewed their record and presented the opportunity for them to ask any questions regarding the visit today. The patient agreed to participate. History of Present Illness Reason for Consultation: LE weakness Requesting Physician: Alina Lynch Attending Physician: Alina Lynch MD History of Present Illness Danica Florez is a 37 yo F presenting with lower extremity weakness and paraesthesias after a syncopal episode yesterday. 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 She fell in the setting of losing consciousness and had difficulty moving her le gs after the event. Patient has a family history of MS but no personal symptoms of MS in the past. History of chronic abdominal pain with negative CTs in the past. No warning prior to the fall, no seizure-like activity. Allergies Allergy/AdvReac Type Severity Reaction Status Date / Time adhesive tape Allergy Mild Rash Verified 07/17/22 14:32 latex Allergy Mild Rash Verified 07/17/22 14:32 nitrofurantoin AdvReac Unknown Gastrointestinal Verified 07/17/22 14:32 Upset hydrocodone [From Vicodin] AdvReac GI upset Verified 07/17/22 14:32 Home Medications Medication Instructions Recorded Confirmed Type multivitamin 1 tab PO DAILY 11/23/20 10/01/22 History valacyclovir 1 gram tablet 1,000 mg PO BID PRN cold sore 3 04/23/22 10/01/22 Rx (Valtrex) days #30 tabs clindamycin 1 %-benzoyl peroxide 5 1 applic topical BID #50 grams 06/18/22 10/01/22 Rx % topical gel Patient History Medical History Acne Allergic rhinitis Anxiety Chronic sinusitis Female infertility Hirsutism Migraine headache Moderate cervical dysplasia Ovarian cyst Post-COVID chronic cough Premenstrual syndrome Renal lesion L, seen on abdominal CT in 2014 Secondary amenorrhea TMJ syndrome Vitamin D deficiency Surgical History History of appendectomy (10/12/12) History of breast augmentation (04/2010) History of laparoscopy (11/2017) History of oral surgery S/p breast implant removal S/P LEEP (09/2011) Family History Mother Adult celiac disease Endometriosis Non-Hodgkin lymphoma Anemia Sister Endometriosis Grandmother (Paternal) Diabetes Aunt Diabetes *Paternal Grandmother (Maternal) Anemia Hypertension Hypercholesteremia Denies family history of Ovarian cancer Prostate cancer Myocardial infarction Breast cancer Colorectal cancer Social History Smoking Status: Never smoker Second Hand Exposure: No; Do You Dip or Chew Tobacco: No; Hx Alcohol Use: Yes Hx Substance Use: No Preferred Language: Mongolian Communication Ability: Effective Visual Impairment: No Limitations Hearing Ability: Normal Poultry Inspector Required: No Beliefs That Will Affect Care: None marital status: marital status details: Jerry Florez (33) [phone] Current Living Situation: Spouse and Family Current Living Situation Comment: lives at home with husbnad and daughter current occupational status: employed 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 Oriented to person, place, and time. Fluent. Comprehension intact. Affect appropriate. Cranial Nerves: II: pupils 3/3 to 2/2 III/IV/: Versions intact without nystagmus, no gaze preference. V: Facial sensation symmetric to light touch VII: Facial expression symmetric VIII: Hearing intact to voice XII: Tongue midline Motor: Strength was symmetric and antigravity throughout though slower in the lower extremities. There were no abnormal movements. Coordination: Movements were non-ataxic Reflexes: Unable to assess over telemedicine Gait: Astasia abasia Results & Data Vital Signs (Past 12 Hours) Vital Signs Temp Pulse Pulse Resp BP Pulse Ox O2 Del Method 10/02/22 07:52 36.9 C 83 20 102/64 97 Room Air 10/02/22 07:20 74 10/02/22 04:24 36.8 C 70 18 106/66 98 Room Air Laboratory Results Abnormal lab results 10/01/22 10/01/22 10/01/22 Range/Units 11:07 11:07 16:04 RBC (4.20-5.40) M/uL Hct (37.0-47.0) % D-Dimer 630 H* (0-500) ug/L FEU Sodium 135 L (136-145) mmol/L Chloride (98-107) mmol/L Glucose 108 H (70-99(Fasting)) mg/dl AST 12 L (13-39) U/L ALT (7-52) U/L Globulin (2.5-4.0) gm/dl CSF Total Protein (15-45) mg/dl Lyme Disease IgM Ab Equivocal A (Negative) 10/01/22 10/02/22 10/02/22 Range/Units 22:30 06:25 06:25 RBC 4.14 L (4.20-5.40) M/uL Hct 36.3 L (37.0-47.0) % D-Dimer (0-500) ug/L FEU Sodium (136-145) mmol/L Chloride 109 H (98-107) mmol/L Glucose (70-99(Fasting)) mg/dl AST 10 L (13-39) U/L ALT 6 L (7-52) U/L Globulin 2.3 L (2.5-4.0) gm/dl CSF Total Protein 45.3 H (15-45) mg/dl Lyme Disease IgM Ab (Negative) Diagnostic Findings MRI neuro-axis - Unremarkable
--- NOTE | 2022-10-02 12:50 | XCELERA ---
[id number] [id number]
--- NOTE | 2022-10-02 13:19 | Discharge Summary ---
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 She reports feeling well prior to this when she went to work this morning. However at work shortly before her syncopal episode she felt dizzy with tunnel/clouded vision. She tried to lie down but this did not help, therefore she tried to get up to go outside and felt worse. She pressed the emergency buzzer and the next thing she remembers is being surrounded by lots of people int he office. She denies any room spinning sensation. She came to the emergency room via ambulance. EMS reported glucose 107 and initial blood pressure 160/92. In the emergency room she had a large loose stool bowel movement, formed initially then watery but no gastrointestinal problem since the fall. After intravenous fluids she has also felt increased weakness and sensation of tingling in 4/5th digits but also swelling in both hands. She is also noting left sided chest pain, not reproducible on exam. Notes it feels like a hot poker stick pressing in her lung or a burning/pinching sensation throughout her ribs cage just on the left side. No worse on palpation. Never had this previously and new since her fall. Also since the fall she has noticed significant weakness in her legs. She is able to move them in bed but when trying to stand up she is currently a 2 assist at bedside. This is all new and she has never had this previously. She notes having a cousin with multiple sclerosis but never had any problems suggestive of MS previously and only eye problem today was related to tunnel vision before her syncopal episode. She has a longstanding history of intermittent lower abdominal pains which she is also having now (usually has pains once a week on average). The pain she has here currently is her usual pain but maybe worse than usual. This pain has been there for the last 2 days. Previously put down to ovarian cysts. Previous CTs were unremarkable. She also has problems with constipation however she has never had a colonoscopy. No melena or bright red blood in stool. She is due her next menstrual period in about 4 days. Previously on control for ovarian cysts Principal Dx & Hospital Course #1 = Principal Diagnosis (1) Bilateral leg weakness: (2) Syncope: (3) Positive Lyme disease serology: (4) Chest pain: (5) Abdominal pain: (6) B12 deficiency: (7) Functional neurological symptom disorder with mixed symptoms: Updated Medication List Medication Instructions Recorded Confirmed Type multivitamin 1 tab PO DAILY 11/23/20 10/01/22 History valacyclovir 1 gram tablet 1,000 mg PO BID PRN cold sore 3 04/23/22 10/01/22 Rx (Valtrex) days #30 tabs clindamycin 1 %-benzoyl peroxide 5 1 applic topical BID #50 grams 06/18/22 10/01/22 Rx % topical gel cyanocobalamin (vitamin B-12) 1,000 mcg PO DAILY #30 caps 10/02/22 Rx 1,000 mcg capsule doxycycline hyclate 100 mg tablet 100 mg PO BID 13 days #26 tabs 10/02/22 Rx Hospital Stay Data Consultations 10/01/22 14:58 ED Decision to Admit Stat 10/02/22 00:42 Consult Neurology Routine Diagnostic Imagining Performed 10/01/22 11:36 CT head/brain wo con Stat 10/01/22 17:48 CT for pulmonary embolism PE [CT angio chest PE protocol] Stat 10/02/22 07:00 MR cervical spine wo/w con Routine MR lumbar spine wo/w con Routine MRI Brain [MR brain MS wo/w con] Routine MRI Thoracic [MR thoracic spine wo/w con] Routine Pending Results Patient Have Any Pending Studies at Discharge: Yes Discharge Instructions Given to Patient (Per Discharging Provider) You were admitted after passing out. Because of your history of another previous episode of syncope and heart racing/tachycardia, you will be set up to wear a cardiac event monitor for 30 days. This should get sent to your home. You should drink plenty of fluids and liberalize the amount of sodium in your diet. You were found to have a vitamin B12 deficiency and were given an injection of B12. You should continue to take oral B12 and have your PCP repeat your B12 levels in a few months to see if your levels have improved. This can contribute to neuropathy and sensory issues in the feet. Your lumbar puncture did not show any signs of infection or other abnormalities. Some of the tests performed were still pending at the time of discharge and your PCP can follow up on these. The MRI of your brain, cervical, thoracic, and lumbar spine was all normal. The Neurologist suspects conversion disorder causing your persistent leg weakness. This should improve with time but there are some online resources that can be helpful in learning more about this at neurosymptoms.org. You could also discuss a referral to a Neuropsychologist for this through your PCP. You did test "equivocal" for Lyme disease and were started on doxycycline x 14 day course. The confirmatory test for this was pending at the time of discharge and can also be followed up on by your PCP. Coding Diagnoses Bilateral leg weakness R29.898 Syncope R55 Syncope type: unspecified Positive Lyme disease serology R76.8 Chest pain R07.9 Abdominal pain R10.9 Abdominal location: unspecified location B12 deficiency E53.8 Functional neurological symptom disorder with mixed symptoms F44.7
[2022-10-04 16:12] LABS: 18KDIGG Band NON-REACTIVE; 23KDIGG Band NON-REACTIVE; 23KDIGM Band REACTIVE; 28KDIGG Band NON-REACTIVE; 30KDIGG Band NON-REACTIVE; 39KDIGG Band NON-REACTIVE; 39KDIGM Band NON-REACTIVE; 41KDIGG Band REACTIVE; 41KDIGM Band NON-REACTIVE; 45KDIGG Band NON-REACTIVE; 58KDIGG Band NON-REACTIVE; 66KDIGG Band NON-REACTIVE; 93KDIGG Band NON-REACTIVE; Lyme Antibodies, WB IgG NEGATIVE (NEGATIVE); Lyme Antibodies, WB IgM NEGATIVE (NEGATIVE)
[2022-10-04 16:27] LABS: EBV DNA Quant PCR Not Detected copies/mL; EBV DNA Quant Source CSF; Lyme DNA PCR CSF or Synovial Not Detected (Not Detected); Lyme DNA Source CSF
== END 2022-10-02 15:20 | disposition home or self-care (01) | DRG 880 ==
LOC: ED 10:33 → 2N 10:33 → SUATTDRO 17:56 → 2N 19:30

== ENCOUNTER 2025-03-24 15:58 | Inpatient (IN) ==
[2025-03-24] MEDS ORDERED: OXYTOCIN 30 UNITS/NSS 30 UNITS/500 ML BAG IV PRN ×2 (18:37→19:36)
[2025-03-24] MEDS ORDERED: LIDOCAINE 1% LOCAL 20 ML VIAL INFIL PRN ×2 (18:37→19:36)
[2025-03-24] MEDS ORDERED: CALCIUM CARBONATE 500 MG CHEWABLE TAB PO PRN ×2 (18:37→19:36)
[2025-03-24] MEDS ORDERED: ACETAMINOPHEN 500 MG TAB PO PRN ×2 (18:37→19:36)
[2025-03-24] MEDS ORDERED: LACTATED RINGER'S 1,000 ML IV PRN (18:37)
--- NOTE | 2025-03-24 19:07 | History & Physical Report ---
Date of Service March 24, 2025 Assessment & Plan (1) Polyhydramnios: Plan: Danica is a 39-year-old G2, P1 currently 37 weeks 1 day gestational age with gestational hypertension newly diagnosed. Patient agreeable to induction of labor for gestational hypertension. Discussed risks and benefits of induction of labor in early term versus risks related to gestational hypertension and preeclampsia. Will start oxytocin per regular protocol in combination with cervical ripening Awad. Will treat blood pressures per indication and magnesium if criteria for severe preeclampsia met. GBS not collected and no history of prior GBS. Swab collected but will hold off on treatment per standard recommendations. Category 1 tracing/reactive NST (2) Supervision of normal intrauterine in multigravida: (3) Gestational hypertension without significant proteinuria: History of Present Illness Primary Care Provider: Sandhya Hunter DO Danica is a 39-year-old G2, P1 currently at 37 weeks 1 day gestational age presents for evaluation of -induced hypertension. Was noted to have elevated blood pressures at work today and presented to labor and delivery and was noted to have a blood pressure in the 150s over 80s and was sent to labor and delivery for further evaluation. Patient is noting a headache and was noted to have intermittent mild range blood pressures mostly in the 140s over 80s. Preeclampsia labs were within normal range. Patient also had elevated blood pressures on 03/18 and was sent to labor and delivery for evaluation at that t [facility]. Evaluation associated at that visit showed normal blood pressures and negative workup for preeclampsia. I reviewed history and findings with patient and her partner today. Discussed that she would meet criteria for gestational hypertension based on blood pressures today as well as the blood pressures that occurred on 03/18. Discussed indication for delivery at 37 weeks and patient agreeable to induction of labor. Allergies Allergy/AdvReac Type Severity Reaction Status Date / Time adhesive tape Allergy Mild Rash Verified 03/24/25 15:34 latex Allergy Mild Rash Verified 03/24/25 15:34 No Known Drug Allergies Allergy Mild Unverified 03/24/25 15:34 Home Medications Medication Instructions Recorded Confirmed Type docosahexaenoic acid 200 mg 1 mg PO 1XD 08/17/24 03/24/25 History capsule ( DHA) lorazepam 0.5 mg tablet (Ativan) 0.5 mg PO Q8H PRN anxiety #30 tabs 10/13/24 03/24/25 Rx escitalopram oxalate 10 mg tablet 10 mg PO DAILY 03/24/25 03/24/25 History (Lexapro) Patient History Medical History (Updated 03/24/25 @ 20:41 by Chucho Maurice MD) Walking pneumonia Bilateral nipple discharge Functional neurological symptom disorder with mixed symptoms Positive Lyme disease serology TMJ syndrome Secondary amenorrhea Renal lesion L, seen on abdominal CT in 2014 Premenstrual syndrome Ovarian cyst Moderate cervical dysplasia Hirsutism Female infertility Surgical History S/p breast implant removal S/P LEEP (09/2011) History of oral surgery History of laparoscopy (11/2017) History of breast augmentation (04/2010) History of appendectomy (10/12/12) Family History Mother Adult celiac disease Endometriosis Non-Hodgkin lymphoma Anemia Prediabetes Sister Endometriosis Grandmother (Paternal) Diabetes Aunt Diabetes Grandmother (Maternal) Anemia Hypertension Hypercholesteremia Thyroid disease Denies family history of Ovarian cancer Prostate cancer Myocardial infarction Breast cancer Colorectal cancer Social History Smoking Status: Former smoker Tobacco Type: Cigarettes Age Started Using Tobacco: 19; Age Quit Using Tobacco: 24; packs per day: 1; Second Hand Exposure: No; Do You Dip or Chew Tobacco: No; Hx Alcohol Use: Yes (prior to ) Hx Substance Use: No Preferred Language: Togolese Communication Ability: Effective Visual Impairment: No Limitations Hearing Ability: Normal Stitch Separator Required: No Beliefs That Will Affect Care: None marital status: marital status details: Jerry Florez (39) [phone] Current Living Situation: Spouse and Family Current Living Situation Comment: Pt lives with her , Jerry and daughter, Sis and 3 dogs current occupational status: employed 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 @ [employer] Other Information That Helps Us Care for You: No Feels Safe at Home: Yes Safety Concerns: Feels Safe At This Time Diet: regular Diet Comment: regular caffeine: Yes during the past year weight has: remained stable Dental Care, Regularly: Yes Physical Activity Frequency: 3-4 Times per Week Seatbelt Use: always Sunscreen Use: Yes Assistive Devices: Glasses Physical Exam Genitourinary: normal external appearance OB Exam Abdomen: + vertex (Confirmed by ultrasound) Manual OB Exam: + cervical dilation fingertip, + cervical effacement 50% and + station high OB Exam Monitor Tracing: + external FHT monitor used, + external uterine monitor used, + category I and + normal FHT variability Results & Data Vital Signs (Past 12 Hours) Vital Signs Temp Pulse Resp BP 03/24/25 18:22 90 03/24/25 18:22 139/68 03/24/25 17:58 88 03/24/25 17:58 133/69 03/24/25 17:39 93 H 03/24/25 17:39 146/77 H 03/24/25 17:18 93 H 03/24/25 17:18 135/77 03/24/25 16:58 90 03/24/25 16:58 133/78 03/24/25 16:30 93 H 03/24/25 16:30 139/76 03/24/25 16:22 36.5 C 95 H 20 143/89 H 03/24/25 16:12 17 03/24/25 16:12 36.9 C 17 03/24/25 16:10 95 H 143/89 H Coding Level of Care Code None Diagnoses Polyhydramnios in third trimester complication, single or unspecified fetus O40.3XX0 Fetus number: single or unspecified fetus Trimester: third trimester Supervision of normal intrauterine in multigravida in third trimester Z34.83 Trimester: third trimester Gestational hypertension without significant proteinuria in third trimester O13.3 Trimester: third trimester (1) Polyhydramnios Fetus number: single or unspecified fetus Trimester: third trimester Qualified Code(s): O40.3XX0 - Polyhydramnios, third trimester, not applicable or unspecified (2) Supervision of normal intrauterine in multigravida Trimester: third trimester Qualified Code(s): Z34.83 - Encounter for supervision of other normal , third trimester (3) Gestational hypertension without significant proteinuria Trimester: third trimester Qualified Code(s): O13.3 - Gestational [- induced] hypertension without significant proteinuria, third trimester
[2025-03-24 19:20] LABS: Hematocrit (blood only) 32.0 % (37.0-47.0); Hemoglobin 11.2 g/dL (12.0-16.0); Mean Corpuscular Hemoglobin 29.9 pg (25.0-34.0); Mean Corpuscular Volume 85.3 fL (80.0-100.0); Platelet Count 202 K/uL (130-400); RDW Standard Deviation 39.1 fL (36.4-46.3); Red Blood Count 3.75 M/uL (4.20-5.40); White Blood Count 8.86 K/ul (4.8-10.8)
[2025-03-24] MEDS: OXYTOCIN 30 UNITS/NSS 30 UNITS/500 ML BAG IV PRN (20:47)
[2025-03-24] MEDS: LACTATED RINGER'S 1,000 ML IV PRN (20:47)
[2025-03-24] MEDS: fentANYL 2 MCG/ML BUPIVacaine 0.125%-NSS 100ML BAG ONE (22:45)
[2025-03-24] MEDS: LIDOCAINE 2%/EPINEPHRINE 1:200,000 20 ML PF ONE (22:46)
--- NOTE | 2025-03-24 22:51 | Anesthesiology Consultation ---
Date of Service March 24, 2025 Assessment & Plan Chart Review Chart Review: Acceptable Risk for Labor Epidural Consults Requested none History Height/Weight Height: 5 ft 2.5 in Weight: 77.564 kg Allergies Allergy/AdvReac Type Severity Reaction Status Date / Time adhesive tape Allergy Mild Rash Verified 03/24/25 15:34 latex Allergy Mild Rash Verified 03/24/25 15:34 No Known Drug Allergies Allergy Mild Unverified 03/24/25 15:34 Medications Home Medications Medication Instructions Recorded Confirmed Last Taken docosahexaenoic acid 200 mg 1 mg PO 1XD 08/17/24 03/24/25 03/24/25 08:00 capsule ( DHA) lorazepam 0.5 mg tablet (Ativan) 0.5 mg PO Q8H PRN anxiety #30 tabs 10/13/24 03/24/25 Unknown escitalopram oxalate 10 mg tablet 10 mg PO DAILY 03/24/25 03/24/25 03/23/25 21:00 (Lexapro) Active Medications Generic Name Dose Route Start Last Admin Trade Name Juvencioq PRN Reason Stop Dose Admin Lactated Ringer's 1,000 mls @ 125 mls/hr 03/24/25 19:36 03/24/25 22:13 Lr IV 03/26/25 19:35 999 mls/hr .Q8H PRN Infusion L&D Protocol Protocol Oxytocin 30 units in 500 mls @ 4 mls/hr 03/24/25 20:31 03/24/25 21:18 Pitocin 30 Units/Nss IV 03/26/25 20:30 0.24 units/hr .Q24H PRN 4 mls/hr Labor Induction/Augmentation Titration Protocol 0.24 UNITS/HR Past Medical History Medical History (Updated 03/24/25 @ 20:41 by Chucho Maurice MD) Walking pneumonia Bilateral nipple discharge Functional neurological symptom disorder with mixed symptoms Positive Lyme disease serology TMJ syndrome Secondary amenorrhea Renal lesion L, seen on abdominal CT in 2014 Premenstrual syndrome Ovarian cyst Moderate cervical dysplasia Hirsutism Female infertility Past Family History Family History Mother Adult celiac disease Endometriosis Non-Hodgkin lymphoma Anemia Prediabetes Sister Endometriosis Grandmother (Paternal) Diabetes Aunt Diabetes Grandmother (Maternal) Anemia Hypertension Hypercholesteremia Thyroid disease Denies family history of Ovarian cancer Prostate cancer Myocardial infarction Breast cancer Colorectal cancer Past Surgical History Surgical History S/p breast implant removal S/P LEEP (09/2011) History of oral surgery History of laparoscopy (11/2017) History of breast augmentation (04/2010) History of appendectomy (10/12/12) Social History Smoking Status: Former smoker tobacco type: cigarettes Do You Dip or Chew Tobacco: No Hx Alcohol Use: Yes (prior to ) alcohol intake frequency: holidays/special occasions only Hx Substance Use: No substance use type: does not use Physical Exam Vital Signs Last Vital Signs Temp 37.1 C 03/24/25 19:42 Pulse 87 03/24/25 22:50 Resp 18 03/24/25 19:42 BP 128/63 03/24/25 22:50 Pulse Ox 100 03/24/25 22:46 Testing Laboratory Results 03/24/25 18:59 Blood Type O Positive 03/24/25 18:59 Antibody Screen NEGATIVE 03/24/25 18:59
[2025-03-24] MEDS ORDERED: NALOXONE HCL 1 MG in SODIUM CHLORIDE 0.9% 1,000 ML IV PRN (22:53)
[2025-03-24] MEDS ORDERED: NALOXONE HCL 0.4 MG/1 ML VIAL/CARP IV PRN (22:53)
[2025-03-24] MEDS ORDERED: ROPIVACAINE 0.5% PF 5 MG/ML 20 ML VIAL EPI PRN (22:53)
[2025-03-24] MEDS ORDERED: BUPIVACAINE 0.25% PF 30 ML VIAL EPI PRN (22:53)
[2025-03-24] MEDS ORDERED: diphenhydrAMINE 50 MG/ML VIAL IV PRN (22:53)
[2025-03-24] MEDS ORDERED: NALBUPHINE HCL INJ 10 MG/ML AMP IV PRN (22:53)
[2025-03-24] MEDS ORDERED: LIDOCAINE 2% MPF LOCAL 5 ML VIAL EPI PRN (22:53)
[2025-03-24] MEDS ORDERED: SODIUM CHLORIDE 0.9% PF INJ 10 ML VIAL EPI PRN (22:53)
[2025-03-24] MEDS: BUPIVACAINE 0.25% PF 30 ML VIAL ONE (23:17)
[2025-03-24] MEDS: SODIUM CHLORIDE 0.9% PF INJ 10 ML VIAL ONE (23:17)
[2025-03-25] MEDS: fentANYL 2 MCG/ML BUPIVacaine 0.125%-NSS 100ML BAG EPI PRN (06:46)
--- NOTE | 2025-03-25 07:34 | Labor Progress Brief Note ---
Date of Service March 25, 2025 Subjective comfortable with epidural Assessment & Plan (1) Gestational hypertension without significant proteinuria: Trimester: third trimester Qualified Code(s): O13.3 - Gestational [-induced] hypertension without significant proteinuria, third trimester (2) Polyhydramnios: Fetus number: single or unspecified fetus Trimester: third trimester Qualified Code(s): O40.3XX0 - Polyhydramnios, third trimester, not applicable or unspecified Plan continuing to watch very closely. is now making rapid change. Multip and pushed 20 minutes for her last baby. Good scalp stim on last md exam. Pit now off. Good variability. Hoping for delivery soon. Admission and Anticipated Discharge Date Admission Date: March 24, 2025 Physical Exam Physical Exam: cx--ant lip, 100/0, per nursing. toco--q2-4, pit was turned off around 5am. efm--130s wtih mod variability, variables noted with most contractions, some are early, rare prolonged good scalp stim per Dr. Sears when she examined her at last check Results & Data Vital Signs (Past 12 Hours) Vital Signs Temp Pulse Resp BP Pulse Ox 03/25/25 07:26 64 100 03/25/25 07:24 87 92 03/25/25 07:21 79 100 03/25/25 07:17 88 135/84 03/25/25 07:16 89 98 03/25/25 07:11 72 100 03/25/25 07:06 87 100 03/25/25 07:01 36.7 C 71 20 116/57 L 99 03/25/25 06:56 66 100 03/25/25 06:51 69 100 03/25/25 06:48 80 106/57 L 03/25/25 06:46 75 98 03/25/25 06:41 85 100 03/25/25 06:36 78 99 03/25/25 06:32 83 128/67 03/25/25 06:31 84 100 03/25/25 06:26 92 H 99 03/25/25 06:21 74 100 03/25/25 06:18 77 127/65 03/25/25 06:16 82 100 03/25/25 06:11 80 100 03/25/25 06:06 78 100 03/25/25 06:01 79 125/62 99 03/25/25 05:59 90 90 12/12/25 05:56 74 97 03/25/25 05:51 73 98 03/25/25 05:46 99 03/25/25 05:46 75 03/25/25 05:46 75 117/67 03/25/25 05:41 83 98 03/25/25 05:36 82 99 03/25/25 05:31 100 03/25/25 05:31 81 03/25/25 05:31 78 114/68 03/25/25 05:26 73 100 03/25/25 05:21 71 99 03/25/25 05:16 100 03/25/25 05:16 78 03/25/25 05:16 71 109/58 L 03/25/25 05:11 78 98 03/25/25 05:06 71 97 03/25/25 05:03 70 119/63 03/25/25 05:01 71 99 03/25/25 05:00 18 03/25/25 05:00 37.0 C 18 03/25/25 04:58 82 89 L 03/25/25 04:56 81 99 03/25/25 04:51 81 99 03/25/25 04:47 76 128/69 03/25/25 04:46 77 99 03/25/25 04:41 91 H 99 03/25/25 04:36 79 99 03/25/25 04:31 86 100 03/25/25 04:29 84 90 03/25/25 04:26 79 98 03/25/25 04:21 82 99 03/25/25 04:16 84 112/58 L 99 03/25/25 04:11 83 99 03/25/25 04:06 87 97 03/25/25 04:03 79 119/57 L 03/25/25 04:01 75 97 03/25/25 03:56 79 97 03/25/25 03:51 86 97 03/25/25 03:46 96 03/25/25 03:46 84 03/25/25 03:46 82 119/57 L 03/25/25 03:41 84 97 03/25/25 03:36 87 97 03/25/25 03:31 98 03/25/25 03:31 81 03/25/25 03:31 80 126/65 03/25/25 03:26 75 97 03/25/25 03:21 80 99 03/25/25 03:17 86 127/69 03/25/25 03:16 86 98 03/25/25 03:11 85 98 03/25/25 03:06 85 97 03/25/25 03:02 75 120/59 L 03/25/25 03:01 75 99 03/25/25 02:56 77 98 03/25/25 02:51 78 99 03/25/25 02:48 71 129/60 03/25/25 02:46 76 100 03/25/25 02:41 74 100 03/25/25 02:38 86 91 03/25/25 02:36 79 100 03/25/25 02:32 93 H 118/55 L 03/25/25 02:31 103 H 100 03/25/25 02:26 79 97 03/25/25 02:21 80 98 03/25/25 02:16 99 03/25/25 02:16 81 03/25/25 02:16 82 130/60 03/25/25 02:11 86 97 03/25/25 02:06 77 98 03/25/25 02:03 77 121/59 L 03/25/25 02:01 76 98 03/25/25 01:56 85 98 03/25/25 01:51 92 H 97 03/25/25 01:50 16 03/25/25 01:50 36.9 C 16 03/25/25 01:47 77 111/59 L 03/25/25 01:46 76 97 03/25/25 01:41 84 97 03/25/25 01:36 77 96 03/25/25 01:32 75 124/67 03/25/25 01:31 73 98 03/25/25 01:26 84 97 03/25/25 01:21 78 97 03/25/25 01:16 82 119/61 97 03/25/25 01:11 81 97 03/25/25 01:06 74 98 03/25/25 01:01 99 03/25/25 01:01 74 03/25/25 01:01 71 122/64 03/25/25 00:56 82 98 03/25/25 00:51 82 100 03/25/25 00:46 77 122/66 99 03/25/25 00:41 77 99 03/25/25 00:36 76 100 03/25/25 00:32 71 127/67 03/25/25 00:31 72 98 03/25/25 00:26 73 98 03/25/25 00:21 75 99 03/25/25 00:16 76 99 03/25/25 00:14 85 113/62 03/25/25 00:11 82 99 03/25/25 00:06 71 99 03/25/25 00:01 75 100 03/24/25 23:56 98 03/24/25 23:56 80 03/24/25 23:51 100 03/24/25 23:51 90 03/24/25 23:46 100 03/24/25 23:46 74 03/24/25 23:46 128/60 03/24/25 23:41 98 03/24/25 23:41 70 03/24/25 23:39 18 03/24/25 23:39 37.0 C 18 03/24/25 23:39 80 03/24/25 23:39 142/71 H 03/24/25 23:36 98 03/24/25 23:36 92 H 03/24/25 23:32 75 03/24/25 23:32 127/58 L 03/24/25 23:31 99 03/24/25 23:31 76 03/24/25 23:26 99 03/24/25 23:26 80 03/24/25 23:21 100 03/24/25 23:21 84 03/24/25 23:16 100 03/24/25 23:16 80 03/24/25 23:14 82 03/24/25 23:14 128/65 03/24/25 23:11 100 03/24/25 23:11 90 03/24/25 23:09 89 03/24/25 23:09 123/71 03/24/25 23:08 91 H 03/24/25 23:08 125/65 03/24/25 23:06 100 03/24/25 23:06 82 03/24/25 23:03 103 H 03/24/25 23:03 121/65 03/24/25 23:01 100 03/24/25 23:01 86 03/24/25 22:58 90 03/24/25 22:58 130/61 03/24/25 22:56 99 03/24/25 22:56 94 H 03/24/25 22:52 85 03/24/25 22:52 134/59 L 03/24/25 22:52 18 03/24/25 22:52 36.9 C 18 03/24/25 22:51 100 03/24/25 22:51 90 03/24/25 22:50 87 03/24/25 22:50 128/63 03/24/25 22:48 88 03/24/25 22:48 128/67 03/24/25 22:46 100 03/24/25 22:46 94 H 03/24/25 22:46 95 H 03/24/25 22:46 133/68 03/24/25 22:44 88 03/24/25 22:44 120/65 03/24/25 22:42 92 H 03/24/25 22:42 127/74 03/24/25 22:41 99 03/24/25 22:41 110 H 03/24/25 22:40 83 03/24/25 22:40 135/75 03/24/25 22:38 85 03/24/25 22:38 141/80 H 03/24/25 22:36 100 03/24/25 22:36 87 03/24/25 22:31 99 03/24/25 22:31 86 03/24/25 22:26 100 03/24/25 22:26 87 03/24/25 22:24 85 03/24/25 22:24 135/76 03/24/25 22:21 100 03/24/25 22:21 85 03/24/25 22:16 99 03/24/25 22:16 86 03/24/25 22:11 99 03/24/25 22:11 81 03/24/25 21:24 89 03/24/25 21:24 128/66 03/24/25 20:24 90 03/24/25 20:24 135/70 03/24/25 19:42 18 03/24/25 19:42 37.1 C 18 03/24/25 19:42 84 03/24/25 19:42 119/69 Coding Level of Care Code None Diagnoses Gestational hypertension without significant proteinuria in third trimester O13.3 Trimester: third trimester Polyhydramnios in third trimester complication, single or unspecified fetus O40.3XX0 Fetus number: single or unspecified fetus Trimester: third trimester
--- NOTE | 2025-03-25 07:39 | Communication Note ---
Date of Service: March 25, 2025 Just checked the patient. ant lip, floppy and able to be reduced. 0 station. Tried a trial push, variable with pushing and did not really come down. Will need to wait a bit longer. Going to try knee chest if patient/baby able to tolerate. Continue to monitor closely.
--- NOTE | 2025-03-25 08:46 | Delivery Summary ---
Vaginal Delivery Summary Date of Service March 25, 2025 Vaginal Delivery Summary and 1st Degree LAC Pre-operative Diagnosis: at 37 weeks ghtn Post-operative Diagnosis: same Procedure: lewis for cervical ripening pitocin iol arom first degree lac and repair EBL: 100cc Anesthesia: epidural Procedure: The pateient presented from the office for iol for ghtn. She got lewis bulb, piocin, arom. She progressed to c/c/0. Baby was high and placed in kneed chest and the fht improved from variables with each contraction with resolution. The patient pushed for two contractions to deliver a viable male in farooq position. The rest of the infant was then delivered without difficulty. The nose and mouth were bulb suctioned and the infant was placed in the maternal abdomen for drying and attention. Cord was clamped and cut at one minute of life. Cord blood and segment obtained. Placenta delivered spontaneous, intact with a three vessel cord. Cervix/sulci/rectum were intact. A first degree perineal laceration was repaired in the normal standard fashion. Hemostasis obtained with dilute pitocin and fundal massage. Apgars were pending. Mother and baby doing well at the end of the delivery. Baby required some masking but by 10 minutes was doing very well. Will go to the nursery for short time. [facility] Vaginal Delivery Charge Delivery Type Details: and 1st Degree LAC
[2025-03-25] MEDS ORDERED: OXYTOCIN 30 UNITS/NSS 30 UNITS/500 ML BAG IV PRN (08:50)
[2025-03-25] MEDS ORDERED: ACETAMINOPHEN 325 MG TAB PO PRN (08:50)
[2025-03-25] MEDS ORDERED: HYDROCORTISONE ACETATE 25 MG SUPP PR PRN (08:50)
--- NOTE | 2025-03-25 09:02 | Anesthesia Procedure Note ---
Date of Service March 25, 2025 Anesthesia Post Epidural Note Vital Signs Vital Signs: Temp Pulse Resp BP Pulse Ox 98.1 F 68 20 133/76 88 L 03/25/25 07:01 03/25/25 08:50 03/25/25 07:01 03/25/25 08:50 03/25/25 08:24 Pain Intensity Bilateral Lower Abdomen: Pain Intensity: 2 Notes Mental Status: alert / awake / arousable and participated in evaluation Nausea / Vomiting: adequately controlled Pain: adequately controlled Airway Patency, RR, SpO2: stable & adequate BP & HR: stable & adequate Hydration State: stable & adequate Neuraxial Anesthesia: was administered and sensory block is resolving Anesthetic Complications: no major complications apparent and Pt Satisfied with anesthetic care Epidural: Removed without complications and With tip intact
[2025-03-25] MEDS: DIPHTHER/TETAN/PERTUS Vaccine (Tdap, Adol/Adult) 0.5mL IM ONE (09:16)
[2025-03-25] MEDS: ESCITALOPRAM OXALATE 10 MG TAB PO SCH (09:24)
[2025-03-25] MEDS: ONDANSETRON INJ 2 MG/ML 2 ML VIAL IV PRN (09:24)
[2025-03-25] MEDS: BENZOCAINE 20% SPRY 85 APPLN/85 GM CAN EXT PRN (10:29)
[2025-03-25] MEDS: LIDOCAINE 2%/EPINEPHRINE 1:200,000 20 ML PF EPI STA (16:14)
[2025-03-25] MEDS: BUPIVACAINE 0.25% PF 30 ML VIAL EPI STA (16:14)
[2025-03-25] MEDS: SODIUM CHLORIDE 0.9% PF INJ 10 ML VIAL EPI STA (16:14)
[2025-03-25] MEDS: DOCUSATE SODIUM 100 MG CAP PO SCH (21:04)
[2025-03-26] MEDS: IBUPROFEN 600 MG TAB PO PRN (01:43)
[2025-03-26 04:09] VITALS: O2SAT 98
[2025-03-26 07:20] LABS: Hematocrit (blood only) 28.0 % (37.0-47.0); Hemoglobin 9.5 g/dL (12.0-16.0)
--- NOTE | 2025-03-26 07:21 | Obstetrical Progress Note ---
Date of Service March 26, 2025 Assessment & Plan (1) state: Recovered well, would like d/c home today. Subjective Ambulation: ambulating normally Voiding: no voiding problems Passing Gas:: Yes Diet Tolerance:: regular diet Lochia:: Small Feeding Type:: breast feeding Physical Exam Constitutional WD/WN, vitals as above Eyes PERRL, conjunctivae normal, anicteric sclerae Neck normal visual inspection Respiratory normal respiratory effort and able to speak in complete sentences; no respiratory distress and no labored breathing Cardiovascular Rate/Rhythm: regular rate and regular rhythm Extremities: no edema Chest (Breasts) Chest: normal inspection of chest Gastrointestinal (Abdomen) Inspection/Auscultation: abdomen normal to inspection Soft, postgravid Fundus slightly to L, at level of umb; likely needs to void, just waking up / still in bed. Lochia small. Psychiatric A+Ox3, euthymic affect Genitourinary OB Exam Abdomen: + fundal height Fundus: + firm and + relation to umbilicus (fundus just below umbilicus); not tender Results & Data Vital Signs (Past 12 Hours) Vital Signs Temp Pulse Resp BP Pulse Ox O2 Del Method 03/26/25 04:08 97.7 F 69 16 106/70 98 Room Air 03/26/25 01:08 97.9 F 70 16 120/76 97 Room Air
[2025-03-26] MEDS: PRENATAL VITAMIN 1 TAB PO SCH (08:26)
[2025-03-26 10:35] VITALS: BP 115/67; PULSE 72; RESP 18; TEMP 97.3
== END 2025-03-26 13:50 | disposition home or self-care (01) | DRG 807 ==
LOC: OPB 15:58 → 4S1 16:00 → 4E2 03-25 11:52